=== PATIENT | male | born 1930 | race Caucasian/White ===

== ENCOUNTER 2016-06-06 09:11 | Inpatient (IN) | payer MEDICARE ==
[2016-06-06] VITALS (7 sets, daily range): BP systolic 114–154; BP diastolic 64–84; PULSE 71–106; RESP 20–22; TEMP 97.1–97.8; O2SAT 95–97
[~2016-06-06] VITALS: Ht 177.8 cm; Wt 114.7 kg
[~2016-06-06 09:11] MED LIST: ANDRGEL TOP; ASPI81TA11 PO; ATAC8TAB PO; COUM5TAB PO; FOLI1TAB PO; FURO1TAB93 PO; NITR0.4S SL; POTA10CA26 PO; PRED10 PO; ROSU40 PO; VITA100018 PO
[2016-06-06] MEDS ORDERED: SODIUM CHLORIDE 0.9% FLUSH 10 ML FLUSH IVF PRN (09:45)
[2016-06-06] MEDS ORDERED: NITROGLYCERIN 2% OINT 1 GM PACKET TOPICAL ONE (09:45)
--- NOTE | 2016-06-06 09:46 | PD ---
HPI Chief Complaint: Respiratory Symptoms Time Seen by Provider: 09:34 Travel History International Travel<30 days: No Contact w/Intl Traveler<30days: No Traveled to known affect area: No History of Present Illness HPI 85-year-old male with history of HTN, HLD, A. fib, CAD with previous PCI 2, CHF here with complaint of shortness of breath and chest pressure. Over the course of the last several weeks patient has been having increasing dyspnea. This is made worse with exertion. Associated orthopnea and PND. Patient has also had some chest pressure with exertion. He has not had any significant symptoms at rest. He has been taking nitroglycerin which does help some. He's been managed by his PCP [facility] outpatient and was diuresed with Lasix earlier this weeks with approximately [address] L out[address] Patient states [address] Cohn who wanted to perform a cardiac catheterization this past winter but patient declined. Last echo 2014 with EF of 52%. PFSH Past Medical History Arthritis: Yes Asthma: No Atrial Fibrillation: Yes Blood Disorders: No Heart Rhythm Problems: Yes Cancer: Yes (MUTIPLE SKIN CANCER) Cardiac Catheterization: Yes Cardiovascular Problems: Yes ([place] , 2 STENTS ,HX OF AFIB) High Cholesterol: Yes Chemotherapy: No Congestive Heart Failure: Yes COPD: No Diabetes: No Endocrine: No Gastrointestinal Disorders: Yes Genitourinary: Yes Headaches: Yes Hiatal Hernia: Yes Hypertension: Yes Immune Disorder: No Kidney Stones: Yes Musculoskeletal: Yes (hX BULGING DISCS CERVIAL, THORACIC,LUMBAR) Neurologic: Yes Psychiatric: No Reproductive: No Respiratory: Yes (PULMONARY EMBOLUS KRISTIN,SLEEP APNEA) Radiation Therapy: No Sleep Apnea: Yes Thyroid Disease: Yes Ulcer: Yes Tetanus Vaccination: < 5 Years Influenza Vaccination: No Past Surgical History Abdominal Surgery: No Body Medical Devices: BLOOD CLOTS BOTH LUNGS AND LEFT LEG. CELLULITIS LT LEG Cardiac Surgery: Yes (stents x 2) Coronary Stent: Yes Ear Surgery: No Endocrine Surgery: No Eye Surgery: Yes (CATARACT BILATERALLY) Genitourinary Surgery: No Gynecologic Surgery: No Joint Replacement: Yes (R KNEE, R HIP) Neurologic Surgery: No Oral Surgery: Yes (T & A) Thoracic Surgery: No Tonsillectomy: Yes Other Surgery: Yes Social History Alcohol Use: Yes (WINE 3-4 X WEEK) Tobacco Use: No Substance Use: No Allergies-Medications (Allergen,Severity, Reaction): Coded Allergies: MRI PRECAUTION (Verified Allergy, Severe, AT THIS TIME PT IS TOO LARGE BUT NOT OVER WEIGHT LIMIT JI, 06/06/16) Morphine (Verified Adverse Reaction, Severe, Confusion, 06/06/16) Uncoded Allergies: HYDROCODONE/ACETAMINOPHEN (Allergy, Mild, Itching, 11/03/15) LEVOFLOXIN (Adverse Reaction, Mild, NAUSEA/DIZZINESS, 11/03/15) Reported Meds & Prescriptions Reported Meds & Active Scripts Active Review of Systems Except as stated in HPI: all other systems reviewed are Neg Physical Exam Narrative GENERAL: Well-appearing elderly male in no acute distress SKIN: Focused skin assessment warm/dry. HEAD: Normocephalic. EYES: No scleral icterus. No injection or drainage. ENT: Mucous membranes pink and moist. NECK: Supple CARDIOVASCULAR: Heart rate in the 100s, irregularly irregular rhythm with frequent PVCs on monitor. No murmur appreciated. RESPIRATORY: No accessory muscle use. Decreased in bilateral bases GASTROINTESTINAL: Abdomen soft, non-tender, nondistended. MUSCULOSKELETAL: 1-2+ edema in the bilateral lower extremities left slightly greater than right NEUROLOGICAL: Awake and alert. Motor grossly within normal limits. Normal speech. PSYCHIATRIC: Appropriate mood and affect; insight and judgment normal. Data Data Last Documented VS Vital Signs Date Time Temp Pulse Resp B/P Pulse Ox O2 Delivery O2 Flow Rate FiO2 06/06/16 09:25 Room Air 06/06/16 09:23 97.7 99 21 148/71 97 Orders Electrocardiogram (06/06/16 ) Complete Blood Count With Diff (06/06/16 09:40) Basic Metabolic Panel (Bmp) (06/06/16 09:40) B-Type Natriuretic Peptide (06/06/16 09:40) Act Partial Throm Time (Ptt) (06/06/16 09:40) Prothrombin Time / Inr (Pt) (06/06/16 09:40) Troponin I (06/06/16 09:40) Iv Access Insert/Monitor (06/06/16 09:40) Ecg Monitoring (06/06/16 09:40) Oximetry (06/06/16 09:40) Chest, Single Ap (06/06/16 09:40) Sodium Chloride 0.9% Flush (Ns Flush) (06/06/16 09:45) Nitroglycerin 2% Oint (Nitroglycerin 2% (06/06/16 09:45) Admit Order (Ed Use Only) (06/06/16 09:40) [facility] Medical Decision Making Medical Screen Exam Complete: Yes Emergency Medical Condition: Yes Medical Record Reviewed: Yes Differential Diagnosis 85-year-old male with history of HTN, HLD, A. fib, CAD with previous PCI 2, CHF here with several weeks of exertional dyspnea and angina, symptom-free at this time. Differential includes stable angina, ACS, CHF exacerbation, A. fib, electrolyte abnormality, symptomatic anemia. Narrative Course Patient placed on monitor, IV established and blood obtained. Twelve-lead EKG shows atrial fibrillation with RVR, rate 105. Frequent PVCs. Patient does have some T-wave inversions in the lateral leads which is new compared to his previous EKG. Symptom-free at this time. 1 inch of nitroglycerin paste applied. Portal chest x-ray obtained that by my read shows no acute abnormalities. CBC, BMP, BNP, troponin, coags notable for minimally elevated BNP. Patient was placed on heparin bolus and drip and will be admitted for further cardiac consultation and likely catheterization. Dr. Shaw, patient's PCP spoke with dextrine mixer while in the ER. Critical Care Narrative Aggregate critical care time was 35 minutes. Time to perform other separately billable procedures was not included in the critical care time. My time did not include minutes spent treating any other patients simultaneously or on activities that did not directly contribute to the patient's treatment. The services I provided to this patient were to treat and/or prevent clinically significant deterioration that could result in: Cardio pulmonary decompensation , , disability I provided critical care services requiring my management, as noted below: Chart data review, documentation time, medication orders and management, vital sign assessments/reviewing monitor data, ordering and reviewing lab tests, ordering and interpreting/reviewing x-rays and diagnostic studies, care of the patient and discussion of the patient with the admitting physicians. Diagnosis Primary Impression: Unstable angina Admitting Information Admitting Physician Requests: Jelena Schuster MD Jun 06, 2016 09:46
[2016-06-06] MEDS ORDERED: ONDANSETRON HCL 4 MG/2 ML VIAL IV PRN (10:00)
[2016-06-06] MEDS ORDERED: NITROGLYCERIN 0.4 MG SL 25 TABS/BTL SL PRN (10:00)
[2016-06-06] MEDS ORDERED: HEPARIN SODIUM - IV 10,000 UNITS/10 ML VIAL IV ONE (10:00)
[2016-06-06] MEDS ORDERED: ACETAMINOPHEN 325 MG TAB PO PRN (10:00)
[2016-06-06] MEDS ORDERED: HEPARIN-D5W INJ 250 ML IV SCH ×2 (10:00)
[2016-06-06] MEDS ORDERED: SODIUM CHLORIDE 0.9% FLUSH 10 ML FLUSH IV FLUSH PRN (10:00)
[2016-06-06] MEDS ORDERED: DOCUSATE SODIUM 100 MG CAP PO PRN (10:00)
[2016-06-06 10:10] LABS: AUTOMATED NEUTROPHIL # 6.4 TH/MM3 (1.8-7.7); BASOPHIL % 0.2 % (0.0-2.0); EOSINOPHIL # 0.1 TH/MM3 (0-0.4); EOSINOPHIL % 0.8 % (0.0-4.0); HEMATOCRIT 50.3 % (39.0-51.0); HEMO FLAGS DIFF FINAL; LYMPH % 22.7 % (9.0-44.0); LYMPHOCYTE # 2.2 TH/MM3 (1.0-4.8); MEAN CELL VOLUME 89.7 FL (80.0-100.0); MEAN CORPUSCULAR HEMOGLOBIN 29.7 PG (27.0-34.0); MEAN CORPUSCULAR HGB CONC 33.1 % (32.0-36.0); MONO % 9.5 % (0.0-8.0); NEUT % 66.8 % (16.0-70.0); PLATELET COUNT 223 TH/MM3 (150-450); RED CELL DISTRIBUTION WIDTH 17.5 % (11.6-17.2); WHITE BLOOD COUNT 9.6 TH/MM3 (4.0-11.0)
--- NOTE | 2016-06-06 10:12 | RADRPT ---
EXAM DATE/TIME: 06/06/2016 09:40 [facility] COMPARISON: CHEST SINGLE AP, November 03, 2015, 10:41. INDICATIONS : Short of breath MEDICAL HISTORY : atrial fibrillation. SURGICAL HISTORY : Coronary artery stent. ENCOUNTER: Initial ACUITY: 1 day PAIN SCORE: 0/10 LOCATION: Bilateral chest FINDINGS: The lungs are clear without infiltrate, nodule, or mass. There is no appreciable pleural effusion fo r technique. Heart and mediastinum are unremarkable. Chronic degenerative changes are present in layne ateral shoulders and not changed. CONCLUSION: No acute cardiopulmonary disease. Antwon England MD on June 06, 2016 at 10:10 Board Certified Radiologist. This report was verified electronically.
[2016-06-06 10:25] LABS: BICARBONATE 30.7 MEQ/L (21.0-32.0); POTASSIUM 3.5 MEQ/L (3.5-5.1)
[2016-06-06 10:30] LABS: APTT (PATIENT) 30.3 SEC (24.3-30.1); INTERNATIONAL NORMALIZED RATIO 2.6 RATIO; PROTHROMBIN TIME - PATIENT 29.9 SEC (9.8-11.6)
[2016-06-06] MEDS ORDERED: ROSU20 PO (10:40)
[2016-06-06] MEDS ORDERED: FENT50DI T-DERMAL (10:40)
[2016-06-06] MEDS ORDERED: ASPI81TA2 PO (10:40)
[2016-06-06] MEDS ORDERED: DICL1GEL TOPICAL (10:40)
[2016-06-06] MEDS ORDERED: ANDR1.62 TOPICAL (10:40)
[2016-06-06] MEDS ORDERED: POTA10CA PO (10:40)
[2016-06-06] MEDS ORDERED: MEDR4TAB PO (10:40)
[2016-06-06] MEDS ORDERED: FOLI1TAB4 PO (10:40)
[2016-06-06] MEDS ORDERED: NITR0.4S SL (10:41)
[2016-06-06] MEDS: POTASSIUM CHLORIDE 10 MEQ CAP PO SCH ×2 (11:00→20:27)
--- NOTE | 2016-06-06 11:05 | MH ---
cc: KEVIN ESPARZA M.D. DATE OF ADMISSION: 06/06/2016 ADMISSION DIAGNOSIS Shortness of breath, chest pressure. HISTORY OF PRESENT ILLNESS This 85-year-old white male well-known to undersigned physician has a history of atherosclerotic heart disease. He underwent coronary stent placement by Dr. Cohn in 2006. The patient also has chronic atrial fibrillation which has been controlled with medication and he is chronically on Coumadin for prophylaxis against embolism. The patient over the last 3 months has had episodes of chest discomfort and increasing dyspnea on exertion. All of the symptoms have been with activity. He was seen by Dr. Cohn [facility] time 2016 and it was suggested he undergo cardiac catheterization but the patient declined. The patient's medications were adjusted, however, he was having difficulty tolerating the higher doses of medications due to symptomatic hypotension. The patient's medications were adjusted and over the last 3-4 weeks he has been having increasing episodes of shortness of breath and some chest discomfort. He did not report to the undersigned physician that he had been having episodes of waking up at night feeling short of breath and having to sit at the side of the bed. He also was having chest pressure in the middle of the night. He has been using sublingual nitroglycerin which provides him with relief. The patient was seen in the undersigned physician's office 3 days prior to admission, at which point he was felt to have fluid overload and his Lasix was increased to 40 mg twice daily. The next day his reported that he diuresed 2000 ccs of urine and was feeling a little better. However, on the day prior to admission the called the undersigned physician and stated that he was still having shortness of breath at night which made it difficult for him to sleep despite using his BiPAP with supplemental oxygen. He was having episodes of chest pressure even occurring at rest, at which point the undersigned physician recommended the patient be taken to this facility for further evaluation and treatment. They opted not to go until this morning. His called EMS this morning for the persistent symptoms and he was brought to this facility. At the current time the patient denies any chest pressure. He was having shortness of breath but he has supplemental oxygen in place. His oxygen saturations have been greater than 92%. He denies any headaches, any visual changes, any palpitations, any nausea, vomiting, diaphoresis. His bowels have been moving well. He has been having vigorous urine output as a result of the Lasix. He denies any fever, chills, night sweats. He has been compliant with his medications. He has had no melena, hematochezia, hemoptysis or hematuria. PAST MEDICAL HISTORY His past medical history is significant for: 1. Rheumatoid arthritis. 2. Kidney stones. 3. Peptic ulcer disease. 4. Hyperlipidemia. 5. Depression. 6. 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 He currently is receiving a Fentanyl patch which has helped greatly with the pain. 7. He has diverticulosis. 8. History of two previous left lower extremity DVTs. He is on chronic Coumadin for anticoagulation. 9. He has history of venous insufficiency in the bilateral lower extremities. 10. Sleep apnea for which she uses a BiPAP and supplemental oxygen. 11. He has hypertension. 12. Hypogonadism. 13. Atherosclerotic heart disease status post coronary stent placement in 2006. 14. H had a compression fracture of L1 in 2011 which resulted in a kyphoplasty. 15. He has atrial fibrillation. 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 17. He has trigeminal neuralgia on the left side of the face which it was felt to be the result of the TMJ and this is currently well-controlled. 18. He has erectile dysfunction. PAST SURGICAL HISTORY 1. He is status post coronary stent placement in 2006. 2. He had a right total knee replacement in 2001. 3. Right total hip replacement in 2004. 4. Carpal tunnel release on the left in 1981. 5. He is status post bilateral cataract removal with lens implants. 6. Resection of a lumbar cyst in 2005. MEDICATIONS Current medications are: 1. Fentanyl patch 50 mcg one patch applied to skin every 3 days. 2. Coumadin 5 mg one tablet daily except 2.5 mg on Mondays and . 3. Potassium chloride ER 10 mEq daily. 4. Furosemide 40 mg twice daily. 5. Atacand 4 mg daily. 6. Prilosec 40 mg daily. 7. Baclofen 10 mg twice a day as needed for the trigeminal neuralgia. 8. Lidocaine patch 5% applied to the back as needed for 12 hours and then removed. 9. Levothyroxine 50 mcg daily. 10. Nitroglycerin 0.4 mg sublingual tablets as needed. 11. Voltaren gel 1% apply 4 grams to the affected joints three times a day as needed. 12. Androgel 1% two pumps to the skin once a day. 13. Enteric-coated aspirin 81 mg daily. 14. Folic acid 1 mg daily. 15. Crestor 20 mg daily. 16. Methylprednisolone 4 mg one tablet daily. ALLERGIES He has allergies to: HYDROCODONE WHICH CAUSED ITCHING. LEVAQUIN WHICH CAUSED ACHILLES TENDON PAIN. MORPHINE WHICH CAUSED CONFUSION. FAMILY HISTORY Noncontributory. SOCIAL HISTORY He is , retired. He does not smoke nor did he ever. He consumed alcohol on a daily basis until March 20, 2016 and he has no alcohol since that time. REVIEW OF SYSTEMS Review of systems is negative except as outlined above. PHYSICAL EXAMINATION VITAL SIGNS: Upon arrival to the emergency department his heart rate was 99, respirations 21, blood pressure 148/71 with a temperature 97.7 degrees Fahrenheit, oxygen saturation on room air was 97%. GENERAL: In general this is an obese elderly white male, lying in bed in mild respiratory distress. HEENT: The pupils are equal, round, reactive to light. Extraocular movements are intact. Sclerae anicteric. Conjunctivae were pink. Bilateral lens implants in place. Nares patent without discharge. Mouth and throat reveal moist mucous membranes. No erythema, exudates. Dentition is good. NECK: Neck is supple without lymphadenopathy, JVD, bruits or thyromegaly. CARDIOVASCULAR: Irregular rate and rhythm with a 3/6 systolic murmur heard best at the left lower sternal border and a softer 2/6 systolic murmur heard best at the right upper sternal border. LUNGS: Reveal diminished breath sounds in the bases but no definitive rales. No wheezes, no rhonchi. ABDOMEN: The abdomen is obese, soft, nontender. Bowel sounds present. No mass palpable. No hepatosplenomegaly. /RECTAL: Deferred. LOWER EXTREMITIES: Reveal 1+ edema. The left leg is larger than the right. No calf tenderness. No Homans' sign. SKIN: Warm and dry. NEUROLOGIC: Nonfocal. LABORATORY DATA Pending at this point. EKG Revealed atrial fibrillation with a rapid ventricular response, 105 beats per minute. There are frequent PVCs. There are [address] depressions in the inferior and lateral leads which are new compared to the patient's previous EKG done within the last 6 months. IMPRESSION AND PLAN 1. This 85-year-old white male presents with shortness of breath and chest pressure. He will be admitted to medical-surgical bed with telemetry for congestive heart failure and coronary ischemia. The patient will be placed on heparin drip. He was given nitroglycerin paste 1 inch. He has already taken aspirin today. Will hold his Coumadin, if INR is elevated, will need to reverse anticoagulation in anticipation of cardiac catheterization with possible percutaneous intervention. The patient will be continued on ARB. Will place him on Carvedilol twice daily. Will perform serial EKG and cardiac enzymes. I have consulted Dr. Cohn the patient's mold blower. I have been told that Dr. Rodriguez is covering. I have placed a call to Dr. Rodriguez and I am awaiting her return call. 2. History of atrial fibrillation. The patient remains in atrial fibrillation and currently is in a rapid ventricular response. The carvedilol should help with the rapid ventricular response, if not, will adjust medication further, will reverse the Coumadin anticoagulation and continue with heparin drip. 3. Hypertension. Blood pressure is mildly elevated but should come under better control with the carvedilol as well as the patient is going to receive Lasix IV for his fluid overload. We will monitor intake and output closely, monitor renal function and electrolytes. 4. History of cervical, thoracic and lumbar disk disease. The patient is continuing with the Fentanyl patch. It was replaced first thing this morning. He will have it changed every 3 days. 5. Sleep apnea. The patient will need to use his home BiPAP machine. Will ask his to bring it in when she comes to the facility. 6. Hypogonadism. Hold testosterone supplementation at this point. 7. History of gastroesophageal reflux disease and peptic ulcer disease. The patient will be placed on pantoprazole instead of his usual omeprazole due to formulary restrictions. I have explained the plan of care to the patient. He expressed understanding and agreement. MD LUCAS Vaz/CATALINO /10:14 AM 10:31 AM
[2016-06-06] MEDS: CARVEDILOL 6.25 MG TAB PO SCH ×2 (11:10→20:27)
[2016-06-06] MEDS: NITROGLYCERIN 2% OINT 1 GM PACKET TOP SCH ×3 (11:10→23:52)
--- NOTE | 2016-06-06 15:12 | EKG ---
Date Performed: 06/06/2016 Time Performed: 09:30:53 PTAGE: 85 years EKG: ATRIAL FIBRILLATION WITH RAPID VENTRICULAR RESPONSE WITH ABERRANT CONDUCTION OR VENTRICULAR PREMATURE COMPLEXES NONSPECIFIC ST & T-WAVE ABNORMALITY When compared to previous tracing, the ventr icular ectopic beats Verses abberrarnt conduction is new, otherwise no significant Change. ABNORMAL R HYTHM ECG PREVIOUS TRACING : 11/03/2015 10.54 DOCTOR: Cristhian Yu Interpretating Date/Time 06/06/2016 15:11:23
[2016-06-06] MEDS ORDERED: HEPARIN SODIUM - IV 10,000 UNITS/10 ML VIAL IV PRN ×4 (16:00)
[2016-06-06] MEDS ORDERED: POTASSIUM CHLORIDE 10 MEQ CONTROLLED RELEASE TAB PO ONE (16:00)
[2016-06-06 16:57] LABS: APTT (PATIENT) 48.7 SEC (24.3-30.1)
[2016-06-06] MEDS ORDERED: FUROSEMIDE 40 MG TAB PO SCH (18:00)
--- NOTE | 2016-06-06 19:04 | MB ---
cc: CINDA LONG M.D., JASON R. M.D. LOPEZ, MARIA I. M.D. DATE OF CONSULTATION 06/06/16 INDICATION He is an 85-year-old white male with history of coronary artery disease and status post coronary stenting in 2006 who has been having angina on exertion for the last 3-months which has progressed to angina at rest. The patient had also been experiencing some paroxysmal nocturnal dyspnea which has improved with administration of diuretics. The patient had been offered a cardiac catheterization before but had refused and now decided to come in to have the procedure done. Currently he is in no acute distress. PAST MEDICAL HISTORY His past medical history, coronary artery disease status post stent in 2006. Rheumatoid arthritis, kidney stones, peptic ulcer disease, hyperlipidemia, chronic back pain with degenerative disk disease. Diverticulosis, lower extremity DVTs, chronic atrial fibrillation with sleep apnea, hypertension, hypogonadism, trigeminal neuralgia. PAST SURGICAL HISTORY Right total knee replacement, right total hip replacement, carpal tunnel release on the left side, bilateral cataracts. ALLERGIES HYDROCODONE, LEVAQUIN AND MORPHINE. FAMILY HISTORY Noncontributory. SOCIAL HISTORY The patient is . Never smoked, quit drinking in February of this year. MEDICATIONS Current medications are: 1. Fentanyl patch. 2. Losartan 25 milligrams daily. 3. Aspirin 81 milligrams daily. 4. Protonix 40 milligrams daily. 5. Methylprednisolone 4 milligrams daily. 6. Lasix 40 milligrams IV daily. 7. Levothyroxine 50 micrograms daily. 8. Pravastatin 20 milligrams daily. 9. Carvedilol 6.5 milligrams twice a day. 10. Potassium 10 milliequivalents twice a day. 11. Sublingual nitroglycerin as needed. PHYSICAL EXAMINATION GENERAL: The patient is in no acute distress. VITAL SIGNS: Blood pressure 115/69 mmHg, heart rate 85 beats per minute. He is a febrile. HEAD/NECK: Head and neck without JVD or carotid bruits. LUNGS: Clear to auscultation. HEART: With a regular irregular rhythm. ABDOMEN: Positive bowel sounds. No megalies palpated. He is obese. EXTREMITIES: Lower extremities with 2+ edema and hyperchromic ischemic changes. NEURO: He has no focal motor deficits. REVIEW OF SYSTEMS Review of systems as stated in the history of present illness. DATA Electrocardiogram with atrial fibrillation with PVCs and a heart rate of 105. CBC within normal limits. INR 2.6. BMP within normal limits except for a low normal potassium of 3.5. Troponins negative x2. Chest x-ray with no cardiopulmonary disease. ASSESSMENT An 85-year-old white male admitted with unstable angina, acute coronary syndrome ruled out. RECOMMENDATIONS Hold Coumadin. Continue other medications the same. Replete potassium. Plan for cardiac catheterization once the INR is below 1.5. MD MARBELLA Stevenson/BARBY /3:47 PM /6:56 PM MTDD
[2016-06-06] MEDS: SODIUM CHLORIDE 0.9% FLUSH 10 ML FLUSH IV FLUSH SCH (20:27)
[2016-06-06] MEDS: PRAVASTATIN SOD 20 MG TAB PO SCH (20:27)
[2016-06-07] VITALS (9 sets, daily range): BP systolic 117–144; BP diastolic 57–78; PULSE 73–92; RESP 20; TEMP 97.1–98.5; O2SAT 93–97
[2016-06-07] MEDS: NITROGLYCERIN 2% OINT 1 GM PACKET TOP SCH ×4 (05:39→21:03)
[2016-06-07] MEDS ORDERED: LEVOTHYROXINE SODIUM 50 MCG TAB PO ONE (07:00)
[2016-06-07 07:33] LABS: INTERNATIONAL NORMALIZED RATIO 3.4 RATIO; PROTHROMBIN TIME - PATIENT 39.7 SEC (9.8-11.6)
[2016-06-07 07:47] LABS: BICARBONATE 25.2 MEQ/L (21.0-32.0); HDL CHOLESTEROL 46.5 MG/DL (40.0-60.0); POTASSIUM 4.4 MEQ/L (3.5-5.1)
[2016-06-07] MEDS ORDERED: ACETAMINOPHEN 500 MG CPLT PO PRN (08:45)
[2016-06-07] MEDS ORDERED: NITROGLYCERIN 0.4 MG SL 25 TABS/BTL SL PRN (08:45)
--- NOTE | 2016-06-07 08:54 | HHI.PR ---
Subjective Remarks Had some chest pressure overnight which was relieved when put O2 back on. UOP good. Less SOB. Complains of musculoskeletal pain. PO intake good. Current Medications Medications (Trade) Dose Ordered Sig/David Route Start Time Stop Time Status Last Admin (NS Flush) 2 ml BID IV FLUSH 06/06/16 21:00 06/06/16 20:27 (NS Flush) 2 ml UNSCH PRN IV FLUSH 06/06/16 10:00 (Nitroglycerin 2% Oint) 1 inch Q6HR TOP 06/06/16 12:00 06/07/16 05:39 (Nitrostat Sl) 0.4 mg Q5M PRN SL 06/06/16 10:00 (Colace) 100 mg BID PRN PO 06/06/16 10:00 (Zofran Inj) 4 mg Q6H PRN IV 06/06/16 10:00 (Cozaar) 25 mg DAILY PO 06/07/16 09:00 (Pravachol) 20 mg HS PO 06/06/16 21:00 06/06/16 20:27 (Ecotrin Ec) 81 mg DAILY PO 06/07/16 09:00 (Protonix) 40 mg DAILY PO 06/07/16 09:00 (Medrol) 4 mg DAILY PO 06/07/16 09:00 (Duragesic 50 Mcg Patch.72 Hr) 1 patch Q3D T-DERMAL 06/09/16 09:00 Miscellaneous Information 1 Q3D T-DERMAL 06/12/16 09:00 (Coreg) 6.25 mg Q12HR PO 06/06/16 11:00 06/06/16 20:27 (KCl) 10 meq BID PO 06/06/16 11:00 06/06/16 20:27 Furosemide 40 mg 40 mg DAILY IV PUSH 06/07/16 09:00 (Vitamin K Inj/ NS Inj) 51 ml @ 102 mls/hr ONCE ONCE IV 06/07/16 08:00 06/07/16 08:29 UNV (Nitrostat Sl) 0.4 mg Q5M PRN SL 06/07/16 08:45 UNV (Tylenol) 1,000 mg BID PRN PO 06/07/16 08:45 UNV Objective Vital Signs Date Time Temp Pulse Resp B/P Pulse Ox O2 Delivery O2 Flow Rate FiO2 06/07/16 05:51 96 Nasal Cannula 2.00 06/07/16 04:00 98.1 73 20 128/78 93 06/07/16 00:00 98.5 92 20 117/74 93 06/06/16 20:00 106 06/06/16 20:00 97.1 84 22 136/64 95 06/06/16 16:00 97.8 83 20 154/82 96 06/06/16 14:29 85 19 115/69 97 06/06/16 12:00 81 20 114/84 96 Room Air 06/06/16 10:54 71 22 142/72 96 Room Air 06/06/16 09:43 97 Room Air 06/06/16 09:25 Room Air 06/06/16 09:23 97.7 99 21 148/71 97 I/O 06/06/16 06/06/16 06/06/16 06/07/16 06/07/16 06/07/16 07:00 15:00 23:00 07:00 15:00 23:00 Intake Total 480 ml 480 ml Output Total 300 ml Balance -300 ml 480 ml 480 ml Intake Oral 480 ml 480 ml Output Urine Total 300 ml # Voids 1 3 3 # Bowel Movements 0 0 Gen: OOB in chair in NAD CV: IRRR with systolic murmur Lungs: Decreased BS in bases otherwise CTA Ext: Tr-1+ distal edema Result Diagram: 06/06/16 0945 06/07/16 0620 Assessment and Plan Problem List: (1) Unstable angina Status: Acute Plan: PR ruled out with serial Troponin. Still intermittent chest discomfort described as a pressure. Occurred with O2 off. Better with O2. Has not taken a nitroglycerin since admission. Further work-up per Cardiology. Continue Nitropaste, Carvedilol, Aspirin (2) Chronic atrial fibrillation Status: Chronic Plan: Will give Vit K to reverse anticoagulation in anticipation of cardiac cath HR 100-110 this am. Will increased Carvedilol. (3) Hypertension Status: Chronic Plan: BP under adequate control (4) Hypokalemia Status: Resolved Plan: Follow K+ level. Cont supplement (5) Rheumatoid arthritis Status: Chronic Plan: Continue Medrol po (6) GERD (gastroesophageal reflux disease) Status: Chronic Plan: Cont PPI (7) Hypothyroidism Status: Chronic Plan: Cont Levothyroxine (8) Obstructive sleep apnea Status: Chronic Plan: will bring machine from home Problem Qualifiers (1) Hypertension: Qualified Code: I10 - Essential hypertension (2) Rheumatoid arthritis: Qualified Code: M06.09 - Rheumatoid arthritis of multiple sites with negative rheumatoid factor (3) GERD (gastroesophageal reflux disease): Qualified Code: K21.9 - Gastroesophageal reflux disease without esophagitis (4) Hypothyroidism: Qualified Code: E03.9 - Hypothyroidism, unspecified type Garrett Shaw MD Jun 07, 2016 08:54
[2016-06-07] MEDS ORDERED: POTASSIUM CHLORIDE 10 MEQ CAP PO SCH (09:00)
[2016-06-07] MEDS ORDERED: PHYTONADIONE INJ 10 MG in SODIUM CHLORIDE 0.9% INJ 50 ML IV ONE (10:00)
[2016-06-07] MEDS: POTASSIUM CHLORIDE 10 MEQ CAP PO SCH ×2 (10:09→21:01)
[2016-06-07] MEDS: PANTOPRAZOLE SOD 40 MG DELAYED RELEASE TAB PO SCH (10:09)
[2016-06-07] MEDS: LOSARTAN 25 MG TAB PO SCH (10:10)
[2016-06-07] MEDS: ASPIRIN EC 81 MG TABEC PO SCH (10:10)
[2016-06-07] MEDS: FUROSEMIDE 40 MG/4 ML VIAL IV PUSH SCH (10:10)
[2016-06-07] MEDS: CARVEDILOL 6.25 MG TAB PO SCH ×2 (10:10→21:00)
[2016-06-07] MEDS: methylPREDNISolone 4 MG TAB PO SCH (10:10)
[2016-06-07] MEDS: SODIUM CHLORIDE 0.9% FLUSH 10 ML FLUSH IV FLUSH SCH ×2 (10:11→21:03)
--- NOTE | 2016-06-07 10:49 | EKG ---
Date Performed: 06/07/2016 Time Performed: 10:30:22 PTAGE: 85 years EKG: ATRIAL FIBRILLATION WITH ABERRANT CONDUCTION OR VENTRICULAR PREMATURE COMPLEXES NONSPECIFIC ST & T-WAVE ABNORMALITY ABNORMAL RHYTHM ECG PREVIOUS TRACING : 06/06/2016 09.30 Compared to prior tracing no significant change DOCTOR: Billy Streeter Interpretating Date/Time 06/07/2016 10:49:17
--- NOTE | 2016-06-07 13:51 | PD.CARD.PN ---
Subjective Subjective Remarks The continues to have difficultly breathing in supine position. Denies CP. Has on nitro paste currently. (Cyndie Leblanc) Objective Medications Current Medications Medications (Trade) Dose Ordered Sig/David Route Start Time Stop Time Status Last Admin (NS Flush) 2 ml BID IV FLUSH 06/06/16 21:00 06/07/16 10:11 (NS Flush) 2 ml UNSCH PRN IV FLUSH 06/06/16 10:00 (Nitroglycerin 2% Oint) 1 inch Q6HR TOP 06/06/16 12:00 06/07/16 05:39 (Nitrostat Sl) 0.4 mg Q5M PRN SL 06/06/16 10:00 (Colace) 100 mg BID PRN PO 06/06/16 10:00 (Zofran Inj) 4 mg Q6H PRN IV 06/06/16 10:00 (Cozaar) 25 mg DAILY PO 06/07/16 09:00 06/07/16 10:10 (Pravachol) 20 mg HS PO 06/06/16 21:00 06/06/16 20:27 (Ecotrin Ec) 81 mg DAILY PO 06/07/16 09:00 06/07/16 10:10 (Protonix) 40 mg DAILY PO 06/07/16 09:00 06/07/16 10:09 (Medrol) 4 mg DAILY PO 06/07/16 09:00 06/07/16 10:10 (Duragesic 50 Mcg Patch.72 Hr) 1 patch Q3D T-DERMAL 06/09/16 09:00 Miscellaneous Information 1 Q3D T-DERMAL 06/12/16 09:00 (KCl) 10 meq BID PO 06/06/16 11:00 06/07/16 10:09 (Lasix Inj) 40 mg DAILY IV PUSH 06/07/16 09:00 06/07/16 10:10 (Tylenol) 1,000 mg BID PRN PO 06/07/16 08:45 (Coreg) 12.5 mg Q12HR PO 06/07/16 09:00 06/07/16 10:10 Vital Signs / I&O Vital Signs Date Time Temp Pulse Resp B/P Pulse Ox O2 Delivery O2 Flow Rate FiO2 06/07/16 12:00 97.5 83 20 123/57 95 06/07/16 08:00 97.7 76 20 138/75 96 06/07/16 05:51 96 Nasal Cannula 2.00 06/07/16 04:00 98.1 73 20 128/78 93 06/07/16 00:00 98.5 92 20 117/74 93 06/06/16 20:00 106 06/06/16 20:00 97.1 84 22 136/64 95 06/06/16 16:00 97.8 83 20 154/82 96 06/06/16 14:29 85 19 115/69 97 I/O 06/06/16 06/06/16 06/06/16 06/07/16 06/07/16 06/07/16 07:00 15:00 23:00 07:00 15:00 23:00 Intake Total 480 ml 480 ml Output Total 300 ml Balance -300 ml 480 ml 480 ml Intake Oral 480 ml 480 ml Output Urine Total 300 ml # Voids 1 3 3 # Bowel Movements 0 0 Physical Exam GENERAL: Obese, elderly male, at bedside SKIN: Warm and dry. HEAD: Normocephalic. EYES: No scleral icterus. No injection or drainage. NECK: Supple, trachea midline. 2 cm JVD CARDIOVASCULAR: Irregularly irregular RESPIRATORY: Breath sounds equal bilaterally. No accessory muscle use. Nasal cannula GASTROINTESTINAL: Abdomen soft, non-tender, nondistended. MUSCULOSKELETAL: No cyanosis, 1+ BLE edema, venous stasis BACK: Nontender without obvious deformity. Laboratory Laboratory Tests Test 06/06/16 06/06/16 06/07/16 16:20 22:56 06:20 Activated Partial 48.7 SEC Thromboplast Time Total Creatine Kinase 49 U/L 48 U/L Troponin I 0.02 NG/ML 0.02 NG/ML Prothrombin Time 39.7 SEC Prothromb Time International 3.4 RATIO Ratio Sodium Level 136 MEQ/L Potassium Level 4.4 MEQ/L Chloride Level 102 MEQ/L Carbon Dioxide Level 25.2 MEQ/L Anion Gap 9 MEQ/L Blood Urea Nitrogen 16 MG/DL Creatinine 0.93 MG/DL Estimat Glomerular Filtration 78 ML/MIN Rate Random Glucose 70 MG/DL Calcium Level 8.5 MG/DL Triglycerides Level 93 MG/DL Cholesterol Level 91 MG/DL LDL Cholesterol 26 MG/DL HDL Cholesterol 46.5 MG/DL Cholesterol/HDL Ratio 1.95 RATIO Imaging Last 72 hours Impressions Chest X-Ray 06/06/16 0940 Signed Impressions: Service Date/Time: Monday, June 06, 2016 09:40 - CONCLUSION: No acute cardiopulmonary disease. Antwon England MD (Cyndie Leblanc) Assessment and Plan Assessment and Plan SOB and CP, troponin X 3 negative, EKG no signs of acute ischemia CHF exacerbation- diuretics recently decreased by PCP. Symptoms improved with increased diuresis Chronic atrial fibrillation. On coumadin, INR supratherapuetic today. 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 negative cardiac stress test 2012 Sleep apnea Chronic back pain PLAN Continue IV diuresis Increase rate control therapy Remove nitro paste, evaluate for recurrent CP symptoms Check cardiac echo for decreased LV function Will follow up tomorrow. We will not plan for cardiac cath at this time. Patient seen and evaluated by Dr. Cohn. (Cyndie Leblanc) Assessment and Plan The exam, history, and the medical decision-making described in the above note were completed with the assistance of the mid-level provider. I reviewed and agree with the findings presented. I attest that I had a [id number] encounter with the patient on the same day, and personally performed and documented my assessment and findings in the medical record. Discussed with Dr Shaw, will treat medically; high risk for cath unable to lay flat, very overweight (Beka Cohn MD) Cyndie Leblanc Jun 07, 2016 13:51 Beka Cohn MD Jun 07, 2016 18:10
[2016-06-07] MEDS: PRAVASTATIN SOD 20 MG TAB PO SCH (21:00)
[2016-06-08] VITALS (10 sets, daily range): BP systolic 102–150; BP diastolic 52–76; PULSE 70–98; RESP 18–19; TEMP 97–98.6; O2SAT 93–98
[2016-06-08] MEDS: NITROGLYCERIN 2% OINT 1 GM PACKET TOP SCH ×4 (06:00→22:07)
[2016-06-08 08:23] LABS: INTERNATIONAL NORMALIZED RATIO 1.1 RATIO; PROTHROMBIN TIME - PATIENT 12.6 SEC (9.8-11.6)
[2016-06-08] MEDS: SODIUM CHLORIDE 0.9% FLUSH 10 ML FLUSH IV FLUSH SCH ×2 (08:24→22:08)
[2016-06-08] MEDS: FUROSEMIDE 40 MG/4 ML VIAL IV PUSH SCH (08:24)
[2016-06-08] MEDS: PANTOPRAZOLE SOD 40 MG DELAYED RELEASE TAB PO SCH (08:24)
[2016-06-08] MEDS: ASPIRIN EC 81 MG TABEC PO SCH (08:24)
[2016-06-08] MEDS: methylPREDNISolone 4 MG TAB PO SCH (08:24)
[2016-06-08] MEDS: POTASSIUM CHLORIDE 10 MEQ CAP PO SCH ×2 (08:24→22:07)
[2016-06-08] MEDS: LOSARTAN 25 MG TAB PO SCH (08:24)
[2016-06-08 08:28] LABS: BICARBONATE 26.6 MEQ/L (21.0-32.0); POTASSIUM 4.8 MEQ/L (3.5-5.1)
[2016-06-08] MEDS: CARVEDILOL 6.25 MG TAB PO SCH ×2 (08:30→22:07)
[2016-06-08] MEDS ORDERED: MAGNESIUM HYDROXIDE SUSP 30 ML CUP PO ONE (09:00)
--- NOTE | 2016-06-08 09:13 | HHI.PR ---
Subjective Remarks Slept better last night. Denies any chest pain or SOB. Still using O2 at 2 l/ min NC. PO intake good. UOP good. No BM since admission. Complains of left foot pain. Has been tender for 1-2 weeks but hurt more overnight. Had pain without weight bearing overnight. No calf tenderness. Ambulating to BR with walker. Current Medications Medications (Trade) Dose Ordered Sig/David Route Start Time Stop Time Status Last Admin (NS Flush) 2 ml BID IV FLUSH 06/06/16 21:00 06/08/16 08:24 (NS Flush) 2 ml UNSCH PRN IV FLUSH 06/06/16 10:00 (Nitroglycerin 2% Oint) 1 inch Q6HR TOP 06/06/16 12:00 06/07/16 05:39 (Nitrostat Sl) 0.4 mg Q5M PRN SL 06/06/16 10:00 (Colace) 100 mg BID PRN PO 06/06/16 10:00 (Zofran Inj) 4 mg Q6H PRN IV 06/06/16 10:00 (Cozaar) 25 mg DAILY PO 06/07/16 09:00 06/08/16 08:24 (Pravachol) 20 mg HS PO 06/06/16 21:00 06/07/16 21:00 (Ecotrin Ec) 81 mg DAILY PO 06/07/16 09:00 06/08/16 08:24 (Protonix) 40 mg DAILY PO 06/07/16 09:00 06/08/16 08:24 (Medrol) 4 mg DAILY PO 06/07/16 09:00 06/08/16 08:24 (Duragesic 50 Mcg Patch.72 Hr) 1 patch Q3D T-DERMAL 06/09/16 09:00 Miscellaneous Information 1 Q3D T-DERMAL 06/12/16 09:00 (KCl) 10 meq BID PO 06/06/16 11:00 06/08/16 08:24 (Lasix Inj) 40 mg DAILY IV PUSH 06/07/16 09:00 06/08/16 08:24 (Tylenol) 1,000 mg BID PRN PO 06/07/16 08:45 (Coreg) 12.5 mg Q12HR PO 06/07/16 09:00 06/08/16 08:30 Objective Vital Signs Date Time Temp Pulse Resp B/P Pulse Ox O2 Delivery O2 Flow Rate FiO2 06/08/16 05:19 97.4 72 18 141/64 96 06/08/16 00:16 97.0 74 18 117/52 95 06/07/16 21:36 96 Nasal Cannula 2.00 06/07/16 20:45 97.9 84 20 128/60 96 06/07/16 20:13 90 06/07/16 16:00 97.1 86 20 144/72 97 06/07/16 12:00 97.5 83 20 123/57 95 I/O 06/07/16 06/07/16 06/07/16 06/08/16 06/08/16 06/08/16 07:00 15:00 23:00 07:00 15:00 23:00 Intake Total 480 ml 960 ml Output Total 175 ml 50 ml 200 ml Balance 480 ml 785 ml -50 ml -200 ml Intake Oral 480 ml 960 ml Output Urine Total 175 ml 50 ml 200 ml # Voids 3 2 # Bowel Movements 0 0 Gen: OOB in chair in NAD CV: IRRR with systolic murmur Lungs: CTA Abd: obese, soft, NT Ext: Bilat lower leg and ankle 1 + edema greater on left than right which is chronic finding. Distal pulses intact. Bilat feet warm. No calf tenderness or Francesca's sign. Left low pressure boiler tender on dorsal medial midfoot. No erythema. Result Diagram: 06/06/16 0945 06/08/16 0736 Assessment and Plan Problem List: (1) Congestive heart failure (CHF) Status: Acute Plan: Appreciate Cardiology input. Clinically patient improved. Echo pending. Chest pain may have been result of increased cardiac demand from CHF decompensation. Chest pain has resolved. Less SOB. Will change Lasix to PO. Increase activity. Wean O2. Continue Carvedilol and Losartan (usually uses Atacand at home). (2) Chronic atrial fibrillation Status: Chronic Plan: Lovenox until INR therapeutic. Resume Coumadin. Ventricular rate controlled (3) Hypertension Status: Chronic Plan: BP under adequate control (4) Hypokalemia Status: Resolved Plan: Follow K+ level. Cont supplement (5) Rheumatoid arthritis Status: Chronic Plan: Continue Medrol po (6) GERD (gastroesophageal reflux disease) Status: Chronic Plan: Cont PPI (7) Hypothyroidism Status: Chronic Plan: Cont Levothyroxine (8) Obstructive sleep apnea Status: Chronic Plan: Patient not utilizing BiPAP. States he feel claustrophobic with it (9) Left foot pain Status: Acute Plan: Has been present for 2 weeks but increased overnight. Proceed with Xray to evaluate for stress fracture. Patient is at increased risk due to chronic steroid use (10) Lumbar disc disease with radiculopathy Status: Chronic Plan: Continue Fentanyl patch Problem Qualifiers (1) Congestive heart failure (CHF): Qualified Code: I50.33 - Acute on chronic diastolic congestive heart failure (2) Hypertension: Qualified Code: I10 - Essential hypertension (3) Rheumatoid arthritis: Qualified Code: M06.09 - Rheumatoid arthritis of multiple sites with negative rheumatoid factor (4) GERD (gastroesophageal reflux disease): Qualified Code: K21.9 - Gastroesophageal reflux disease without esophagitis (5) Hypothyroidism: Qualified Code: E03.9 - Hypothyroidism, unspecified type Garrett Shaw MD Jun 08, 2016 09:13
--- NOTE | 2016-06-08 10:27 | RADRPT ---
EXAM DATE/TIME: 06/08/2016 09:11 [facility] COMPARISON: No previous studies available for comparison. INDICATIONS : Left foot pain and swelling. MEDICAL HISTORY : A-Fib. SURGICAL HISTORY : Coronary artery stent ENCOUNTER: Subsequent ACUITY: 3 days PAIN SCORE: 10/10 LOCATION: Left Foot, medial mid foot. FINDINGS: Extensive arthritic changes are noted involving the tarsal metatarsal joint and the tarsal-tarsal maxime nt. There is no acute fracture or dislocation. Arteriovascular complications are noted. Diffuse so ft tissue swelling is noted. CONCLUSION: 1. Extensive arthritic changes involving the tarsal-tarsal and tarsal-metatarsal joint. 2. No acute fracture or dislocation. 3. Arteriovascular calcifications throughout the left foot. 4. Diffuse soft tissue swelling. Drew Elaine MD on June 08, 2016 at 10:19 Board Certified Radiologist. This report was verified electronically.
[2016-06-08] MEDS: FUROSEMIDE 40 MG TAB PO SCH ×2 (10:51→14:12)
--- NOTE | 2016-06-08 10:52 | PD.CARD.PN ---
Subjective Subjective Remarks The patient denies chest pain since nitro paste was removed. Continues to have SOB greater than his baseline, but improved since admission. Left lower extremity edema > right lower extremity. INR 1.1 today. Objective Vital Signs / I&O Vital Signs Date Time Temp Pulse Resp B/P Pulse Ox O2 Delivery O2 Flow Rate FiO2 06/08/16 10:16 93 Nasal Cannula 2.00 06/08/16 05:19 97.4 72 18 141/64 96 06/08/16 00:16 97.0 74 18 117/52 95 06/07/16 21:36 96 Nasal Cannula 2.00 06/07/16 20:45 97.9 84 20 128/60 96 06/07/16 20:13 90 06/07/16 16:00 97.1 86 20 144/72 97 06/07/16 12:00 97.5 83 20 123/57 95 I/O 06/07/16 06/07/16 06/07/16 06/08/16 06/08/16 06/08/16 07:00 15:00 23:00 07:00 15:00 23:00 Intake Total 480 ml 960 ml Output Total 175 ml 50 ml 200 ml Balance 480 ml 785 ml -50 ml -200 ml Intake Oral 480 ml 960 ml Output Urine Total 175 ml 50 ml 200 ml # Voids 3 2 # Bowel Movements 0 0 Physical Exam GENERAL: Obese, elderly male, at bedside SKIN: Warm and dry. HEAD: Normocephalic. EYES: No scleral icterus. No injection or drainage. NECK: Supple, trachea midline. CARDIOVASCULAR: Irregularly irregular RESPIRATORY: Breath sounds equal bilaterally. No accessory muscle use. Nasal cannula GASTROINTESTINAL: Abdomen soft, non-tender, nondistended. MUSCULOSKELETAL: No cyanosis, 1+ BLE edema L>R, venous stasis BACK: Nontender without obvious deformity. Laboratory Laboratory Tests Test 06/08/16 07:36 Prothrombin Time 12.6 SEC Prothromb Time International 1.1 RATIO Ratio Sodium Level 138 MEQ/L Potassium Level 4.8 MEQ/L Chloride Level 101 MEQ/L Carbon Dioxide Level 26.6 MEQ/L Anion Gap 10 MEQ/L Blood Urea Nitrogen 20 MG/DL Creatinine 0.96 MG/DL Estimat Glomerular Filtration 75 ML/MIN Rate Random Glucose 75 MG/DL Calcium Level 8.3 MG/DL Imaging Last 72 hours Impressions Chest X-Ray 4/16/17 0930 Signed Impressions: Service Date/Time: Monday, June 06, 2016 09:40 - CONCLUSION: No acute cardiopulmonary disease. Antwon England MD Assessment and Plan Assessment and Plan SOB and CP, troponin X 3 negative, EKG no signs of acute ischemia CHF exacerbation- diuretics recently decreased by PCP. Symptoms improved with increased diuresis Chronic atrial fibrillation. On coumadin prior to admission. INR 1.1 today. 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 negative cardiac stress test 2012 Sleep apnea Chronic back pain PLAN Start Lovenox/coumadin bridge Continue diuresis Limit salt intake Discussed case with Dr Shaw yesterday. On the basis of the patient's comorbidities and current clinical status, we will hold off on cardiac cath at this time. He will have an ischemic workup outpatient. Assessment and plan discussed with Dr Cohn. Cyndie Leblanc Jun 08, 2016 10:51
[2016-06-08] MEDS: ENOXAPARIN SODIUM 120 MG/0.8 ML SYRINGE SQ SCH (12:00)
--- NOTE | 2016-06-08 12:03 | EC ---
Study Study Date:06/07/2016 STUDY CONCLUSIONS SUMMARY - Procedure narrative: Image quality was fair. The study was technically limited due to poor acoustic window availability. - Left ventricle: The cavity size was normal. Wall thickness was at the upper limits of normal. Systolic function was mildly reduced. The estimated ejection fraction was in the range of 45% to 50%. The study is not technically sufficient to allow evaluation of LV diastolic function. - Aortic valve: There was mild stenosis. Valve area: 1.4cm^2(VTI). Valve area: 1.34cm^2 (Vmax). If LV function is below 40, please consider prescribing an ACEI or ARB or document rationale for non-use. PROCEDURE DATA STUDY STATUS: Elective. Procedure: Transthoracic echocardiography. Image quality was fair. The study was technically limited due to poor acoustic window availability. Scanning was performed from the parasternal, apical, and subcostal acoustic windows. Study completion: The patient tolerated the procedure well. Transthoracic echocardiography. M-mode, complete 2D, complete spectral Doppler, and color Doppler. Height: Height: 70in. Weight: Weight: 253.5lb. Body mass index: BMI: 36.4kg/m^2. Body surface area: BSA: 2.31m^2. Patient status: Inpatient. CARDIAC ANATOMY LEFT VENTRICLE: The cavity size was normal. Wall thickness was at the upper limits of normal. Systolic function was mildly reduced. The estimated ejection fraction was in the range of 45% to 50%. Images were inadequate for LV wall motion assessment. The study is not technically sufficient to allow evaluation of LV diastolic function. AORTIC VALVE: Not well visualized. Moderately calcified leaflets. Doppler: There was mild stenosis. No significant regurgitation. Valve area: 1.4cm^2(VTI). Indexed valve area: 0.61cm^2/m^2 (VTI). Valve area: 1.34cm^2 (Vmax). Indexed valve area: 0.58cm^2/m^2 (Vmax). Mean gradient: 12mm Hg (S). Peak gradient: 22mm Hg (S). MITRAL VALVE: Mildly calcified annulus. Doppler: There was no evidence for stenosis. Trace regurgitation. Valve area by pressure half-time: 4.15cm^2. Indexed valve area by pressure half-time: 1.8cm^2/m^2. PULMONIC VALVE: Not well visualized. Doppler: There was no evidence for stenosis. No significant regurgitation. TRICUSPID VALVE: The valve appears to be grossly normal. Doppler: There was no evidence for stenosis. No significant regurgitation. PERICARDIUM: There was no pericardial effusion. Patient weight: 253.5lb _Ejection fraction:_ 65-75% _Fractional shortening:_ 32% up to 5Kg 5-11.5Kg 11.6-22.9Kg 23-45Kg 45-57Kg Aortic Root 7-13 <17 13-22 17-27 17-27 LA diam 6-13 <23 24-38 33-47 37-40 RVID 10-17 7-15 7-15 7-18 8-17 LVIDd 12-22 <32 24-38 33-47 37-40 LVPW 2-4 3-6 5-7 6-8 7-8 IVS 2-4 3-6 5-7 6-8 7-8 BASIC MEASUREMENTS ADULT NORMAL Left ventricle LV internal dimension, ED, chordal 47.1 mm 43-52 level, PLAX LV internal dimension, ES, chordal 34.8 mm 23-38 level, PLAX Fractional shortening, chordal level, *26 % >29 PLAX LV posterior wall thickness, ED 11.2 mm IVS/LVPW ratio, ED 1.02 <1.3 Volume, ED, MOD, 1-plane 143 ml Volume, ES, MOD, 1-plane 74 ml Ejection fraction, MOD, 1-plane 48 % Stroke volume, MOD, 1-plane 69 ml Volume index, ED, MOD, 1-plane 62 ml/m^2 Volume index, ES, MOD, 1-plane 32 ml/m^2 Stroke index, MOD, 1-plane 29.9 ml/m^2 Ventricular septum Septal thickness, ED 11.4 mm Aortic valve Leaflet separation *12 mm 15-26 Left atrium Anterior-posterior dimension 33 mm Anterior-posterior dimension index 1.43 cm/m^2 <2.2 Right ventricle RV internal dimension, ED, PLAX 28.6 mm 19-38 BASIC MEASUREMENTS ADULT NORMAL Aortic valve Leaflet separation *12 mm 15-26 Aorta Root diameter, ED 24 mm 20-37 DOPPLER MEASUREMENTS ADULT NORMAL Aortic valve Peak velocity, S 237 cm/s Mean velocity, S 156 cm/s VTI, S 39.2 cm Mean gradient, S 12 mm Hg Peak gradient, S 22 mm Hg Valve area, VTI 1.4 cm^2 Valve area index, VTI 0.61 cm^2/m^2 Valve area, Vmax 1.34 cm^2 Valve area index, Vmax 0.58 cm^2/m^2 Mitral valve Pressure half-time 53 ms Valve area, pressure half-time 4.15 cm^2 Valve area index, pressure half-time 1.8 cm^2/m^2 Pulmonic valve Peak velocity, S 100 cm/s LEGEND: Mean values are shown as u=mean value. Asterisk (*) blackburn values outside specified normal range. Prepared and signed by Srikanth Muir [id number]
[2016-06-08] MEDS ORDERED: WARFARIN SOD 5 MG TAB PO SCH (16:00)
[2016-06-08] MEDS: PRAVASTATIN SOD 20 MG TAB PO SCH (22:07)
[2016-06-09 01:57] VITALS: BP 132/73; PULSE 81; RESP 18; TEMP 98.2; O2SAT 97
[2016-06-09] MEDS: NITROGLYCERIN 2% OINT 1 GM PACKET TOP SCH (05:03)
[2016-06-09 05:08] VITALS: BP 133/74; PULSE 71; RESP 18; TEMP 98.3; O2SAT 97
[2016-06-09 07:09] LABS: HEMATOCRIT 48.6 % (39.0-51.0); MEAN CELL VOLUME 90.4 FL (80.0-100.0); MEAN CORPUSCULAR HEMOGLOBIN 29.6 PG (27.0-34.0); MEAN CORPUSCULAR HGB CONC 32.7 % (32.0-36.0); PLATELET COUNT 189 TH/MM3 (150-450); RED BLOOD COUNT 5.38 MIL/MM3 (4.50-5.90); RED CELL DISTRIBUTION WIDTH 16.7 % (11.6-17.2); REVIEW FLAG FINAL; WHITE BLOOD COUNT 8.9 TH/MM3 (4.0-11.0)
[2016-06-09 07:19] LABS: INTERNATIONAL NORMALIZED RATIO 1.1 RATIO; PROTHROMBIN TIME - PATIENT 12.2 SEC (9.8-11.6)
[2016-06-09 08:00] VITALS: BP 162/72; PULSE 74; RESP 20; TEMP 98.2; O2SAT 96
[2016-06-09] MEDS ORDERED: fentaNYL 50 MCG/HR PATCH T-DERMAL SCH (09:00)
[2016-06-09] MEDS ORDERED: CARV6.25 PO (09:18)
[2016-06-09] MEDS ORDERED: ENOX120P SQ (09:18)
[2016-06-09] MEDS ORDERED: FURO40TA PO (09:18)
[2016-06-09] MEDS ORDERED: POTA10CA PO (09:18)
[2016-06-09] MEDS ORDERED: OMEP20TA PO (09:18)
[2016-06-09] MEDS ORDERED: CAND4 PO (09:18)
[2016-06-09] MEDS ORDERED: LEVO50TA4 PO (09:18)
[2016-06-09] MEDS ORDERED: BACL10TA PO (09:18)
[2016-06-09] MEDS ORDERED: COUM5TAB PO (09:18)
--- NOTE | 2016-06-09 09:19 | HHI.PR ---
Subjective Remarks Denies SOB. O2 sat on room air 94%. Slept well with O2. Did not use BiPAP. UOP good. No chest pain. CLARKE much improved. Ambulates to BR and back without SOB. Left foot pain improved. Current Medications Medications (Trade) Dose Ordered Sig/David Route Start Time Stop Time Status Last Admin (NS Flush) 2 ml BID IV FLUSH 06/06/16 21:00 06/08/16 22:08 (NS Flush) 2 ml UNSCH PRN IV FLUSH 06/06/16 10:00 (Nitroglycerin 2% Oint) 1 inch Q6HR TOP 06/06/16 12:00 06/07/16 05:39 (Nitrostat Sl) 0.4 mg Q5M PRN SL 06/06/16 10:00 (Colace) 100 mg BID PRN PO 06/06/16 10:00 (Zofran Inj) 4 mg Q6H PRN IV 06/06/16 10:00 (Cozaar) 25 mg DAILY PO 06/07/16 09:00 06/08/16 08:24 (Pravachol) 20 mg HS PO 06/06/16 21:00 06/08/16 22:07 (Ecotrin Ec) 81 mg DAILY PO 06/07/16 09:00 06/08/16 08:24 (Protonix) 40 mg DAILY PO 06/07/16 09:00 06/08/16 08:24 (Medrol) 4 mg DAILY PO 06/07/16 09:00 06/08/16 08:24 (Duragesic 50 Mcg Patch.72 Hr) 1 patch Q3D T-DERMAL 06/09/16 09:00 Miscellaneous Information 1 Q3D T-DERMAL 06/12/16 09:00 (KCl) 10 meq BID PO 06/06/16 11:00 06/08/16 22:07 (Tylenol) 1,000 mg BID PRN PO 06/07/16 08:45 (Coreg) 12.5 mg Q12HR PO 06/07/16 09:00 06/08/16 22:07 (Coumadin) 5 mg DAILY@1600 PO 06/08/16 16:00 06/08/16 16:30 (Lasix) 40 mg BID@08,13 PO 06/08/16 09:00 06/08/16 14:12 (Lovenox Inj) 110 mg Q24H SQ 06/08/16 09:00 06/08/16 12:00 Objective Vital Signs Date Time Temp Pulse Resp B/P Pulse Ox O2 Delivery O2 Flow Rate FiO2 06/09/16 08:00 98.2 74 20 162/72 96 06/09/16 05:08 98.3 71 18 133/74 97 06/09/16 01:57 98.2 81 18 132/73 97 06/08/16 21:35 Nasal Cannula 2.00 06/08/16 20:53 98.4 98 18 120/76 98 06/08/16 19:59 91 06/08/16 16:00 98.3 84 18 115/57 95 06/08/16 12:00 98.4 88 19 102/61 94 06/08/16 11:17 70 06/08/16 10:52 97 06/08/16 10:16 93 Nasal Cannula 2.00 I/O 06/08/16 06/08/16 06/08/16 06/09/16 06/09/16 06/09/16 07:00 15:00 23:00 07:00 15:00 23:00 Intake Total 480 ml Output Total 200 ml 400 ml Balance -200 ml 480 ml -400 ml Intake Oral 480 ml Output Urine Total 200 ml 400 ml # Voids 6 # Bowel Movements 1 CV: IRRR with systolic murmur Lungs: CTA Ext: 1 + edema worse on left than right Result Diagram: 06/09/16 0630 06/08/16 0736 Other Results Echo: LVEF: 45-50% Assessment and Plan Problem List: (1) Congestive heart failure (CHF) Status: Acute Plan: Clinically improved. No further chest pain. Continue ARB and Lasix. Was on Beta Meena in past but could not tolerate due to low BP. May be able to resume as outpatient. (2) Chronic atrial fibrillation Status: Chronic Plan: Continue Coumadin. Lovenox until INR therapeutic. Ventricular rate controlled (3) Hypertension Status: Chronic Plan: BP under adequate control (4) Hypokalemia Status: Resolved Plan: Follow K+ level. Cont supplement (5) Rheumatoid arthritis Status: Chronic Plan: Continue Medrol po (6) GERD (gastroesophageal reflux disease) Status: Chronic Plan: Cont PPI (7) Hypothyroidism Status: Chronic Plan: Cont Levothyroxine (8) Obstructive sleep apnea Status: Chronic Plan: Encouraged patient to use BiPAP at night. If he does not, he should at least use O2 at 2 l/min NC (9) Left foot pain Status: Acute Plan: X-ray revealed advanced osteoarthritis. Patient reports pain is less today. Will follow. (10) Lumbar disc disease with radiculopathy Status: Chronic Plan: Continue Fentanyl patch Discharge Planning Home today with Home Health Problem Qualifiers (1) Congestive heart failure (CHF): Qualified Code: I50.33 - Acute on chronic diastolic congestive heart failure (2) Hypertension: Qualified Code: I10 - Essential hypertension (3) Rheumatoid arthritis: Qualified Code: M06.09 - Rheumatoid arthritis of multiple sites with negative rheumatoid factor (4) GERD (gastroesophageal reflux disease): Qualified Code: K21.9 - Gastroesophageal reflux disease without esophagitis (5) Hypothyroidism: Qualified Code: E03.9 - Hypothyroidism, unspecified type Garrett Shaw MD Jun 09, 2016 09:19
--- NOTE | 2016-06-09 09:21 | HHI.FF ---
Face to Face Verification Diagnosis: (1) Congestive heart failure (CHF) (2) Rheumatoid arthritis (3) Chronic atrial fibrillation (4) Hypothyroidism (5) Hypertension (6) Lumbar disc disease with radiculopathy Physical Therapy Order: Evaluate and Treat Occupational Therapy Order: Evaluate and Treat Home Health Nursing Order: Signs/symptoms of disease process CHF education Medication education-adverse effect Nursing assessment with vital signs Instructions: Nurse to obtain PT with INR twice weekly Home Health Aide Order: To Assist In: Bathing and personal care, service dog trainer and meal prep I have seen patient Goyo Caba on 06/09/16. My clinical findings support the need for the requested home health care services because: Ltd mobility - disease progression Patient has SOB Deconditioned w/ increased weakness High risk of falls I certify that my clinical findings support that this patient is homebound because: Unsteady gait/balance Unsafe to leave home unassisted Poor cardiac reserve Garrett Shaw MD Jun 09, 2016 09:21
[2016-06-09] MEDS: CARVEDILOL 6.25 MG TAB PO SCH (09:35)
[2016-06-09] MEDS: POTASSIUM CHLORIDE 10 MEQ CAP PO SCH (09:35)
[2016-06-09] MEDS: methylPREDNISolone 4 MG TAB PO SCH (09:35)
[2016-06-09] MEDS: PANTOPRAZOLE SOD 40 MG DELAYED RELEASE TAB PO SCH (09:35)
[2016-06-09] MEDS: ENOXAPARIN SODIUM 120 MG/0.8 ML SYRINGE SQ SCH (09:35)
[2016-06-09] MEDS: LOSARTAN 25 MG TAB PO SCH (09:35)
[2016-06-09] MEDS: ASPIRIN EC 81 MG TABEC PO SCH (09:35)
[2016-06-09] MEDS: FUROSEMIDE 40 MG TAB PO SCH (09:35)
[2016-06-09] MEDS: SODIUM CHLORIDE 0.9% FLUSH 10 ML FLUSH IV FLUSH SCH (09:36)
[2016-06-09 10:27] VITALS: O2SAT 96
--- NOTE | 2016-06-09 11:02 | PD.CARD.PN ---
Subjective Subjective Remarks The patient denies CP. He is tolerating room air. INR remains subtherapeutic. ( Cyndie Leblanc) Objective Vital Signs / I&O Vital Signs Date Time Temp Pulse Resp B/P Pulse Ox O2 Delivery O2 Flow Rate FiO2 06/09/16 10:27 96 Nasal Cannula 2.00 06/09/16 08:00 98.2 74 20 162/72 96 06/09/16 05:08 98.3 71 18 133/74 97 06/09/16 01:57 98.2 81 18 132/73 97 06/08/16 21:35 Nasal Cannula 2.00 06/08/16 20:53 98.4 98 18 120/76 98 06/08/16 19:59 91 06/08/16 16:00 98.3 84 18 115/57 95 06/08/16 12:00 98.4 88 19 102/61 94 06/08/16 11:17 70 I/O 06/08/16 06/08/16 06/08/16 06/09/16 06/09/16 06/09/16 07:00 15:00 23:00 07:00 15:00 23:00 Intake Total 480 ml Output Total 200 ml 400 ml Balance -200 ml 480 ml -400 ml Intake Oral 480 ml Output Urine Total 200 ml 400 ml # Voids 6 # Bowel Movements 1 Physical Exam GENERAL: Obese, elderly male, at bedside SKIN: Warm and dry. HEAD: Normocephalic. EYES: No scleral icterus. No injection or drainage. NECK: Supple, trachea midline. CARDIOVASCULAR: Irregularly irregular RESPIRATORY: Breath sounds equal bilaterally. No accessory muscle use. GASTROINTESTINAL: Abdomen soft, non-tender, nondistended. MUSCULOSKELETAL: No cyanosis, venous stasis present, 1+ BLE BACK: Nontender without obvious deformity. Laboratory Laboratory Tests Test 06/09/16 06:30 White Blood Count 8.9 TH/MM3 Red Blood Count 5.38 MIL/MM3 Hemoglobin 15.9 GM/DL Hematocrit 48.6 % Mean Corpuscular Volume 90.4 FL Mean Corpuscular Hemoglobin 29.6 PG Mean Corpuscular Hemoglobin 32.7 % Concent Red Cell Distribution Width 16.7 % Platelet Count 189 TH/MM3 Mean Platelet Volume 8.3 FL Prothrombin Time 12.2 SEC Prothromb Time International 1.1 RATIO Ratio (Cyndie Leblanc) Assessment and Plan Assessment and Plan SOB and CP, troponin X 3 negative, EKG no signs of acute ischemia Diastolic CHF exacerbation- diuretics recently decreased by PCP. Symptoms improved with increased diuresis ECHO 06/07/2016- EF 45-50%, mild Chronic atrial fibrillation. On coumadin prior to admission. INR 1.1 today. 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 negative cardiac stress test 2012 Sleep apnea Chronic back pain PLAN Continue Lovenox/coumadin bridge Continue diuresis, BB, ASA, statin and ARB Limit salt intake He will have an ischemic workup outpatient. The patient is clear from a cardiac standpoint for discharge. Assessment and plan discussed with Dr Cohn. (Cyndie Leblanc) Assessment and Plan Doing better will allow to d/c (Beka Cohn MD) Cyndie Leblanc Jun 09, 2016 11:02 Beka Cohn MD Jun 14, 2016 14:07
[2016-06-09 18:33] VITALS: PULSE 80
[2016-06-12] MEDS ORDERED: REMOVE OLD DURAGESIC (FENTANYL) PATCH T-DERMAL SCH (09:00)
--- NOTE | 2016-08-04 20:08 | HHI.DS ---
Discharge Summary Admission Date Jun 06, 2016 at 09:42 Discharge Date: Jun 09, 2016 Admitting Diagnosis angina (1) Unstable angina Diagnosis: Principal (2) Chronic atrial fibrillation Diagnosis: Secondary (3) Hypertension Diagnosis: Secondary (4) Hypothyroidism Diagnosis: Secondary (5) GERD (gastroesophageal reflux disease) Diagnosis: Secondary (6) Obstructive sleep apnea Diagnosis: Secondary (7) Lumbar disc disease with radiculopathy Diagnosis: Secondary (8) Rheumatoid arthritis Diagnosis: Secondary Brief History 86-year-old white male with history of chronic atrial fibrillation, I prescribed heart disease, hypertension, hypothyroidism and rheumatoid arthritis had been experiencing chest pressure with exertion and dyspnea on exertion for several months. This children's lunchroom supervisor, Dr. Cohn had recommended cardiac catheterization, however, the patient declined. Approximately a week prior to admission to the hospital, the patient was drinking increasing shortness of breath and was having orthopnea when trying to lie down at night. The patient' s furosemide was increased to 40 mg twice daily. He diureses 2000 cc of urine in the first day. Although the patient had some improvement initially, his contacted the undersigned physician on the day prior to admission stating that he was having increasing dyspnea on exertion, increasing orthopnea and chest pressure at night when he tried to lie down. It was recommended the patient be taken to the emergency department for further evaluation. The patient decided to wait until the next morning to see how he fell. On the morning of admission, the patient's symptoms had worsened, therefore, he contacted EMS and was transferred to this facility for further evaluation and treatment. In the emergency department patient's BNP was 127. EKG did not reveal any acute changes. The patient was felt to have unstable angina. The patient would be admitted to a medical surgical bed with telemetry to rule out acute ischemia and for cardiology consultation with possible cardiac catheterization. His Coumadin would be held in anticipation of a cardiac catheterization. He would have serial EKGs and cardiac enzymes, nitroglycerin paste and receive Lovenox subcutaneously. Hospital Course The patient was admitted to the medical surgical bed with telemetry. She was seen in consultation by Mary Rodriguez M.D. who is covering for the patient's children's lunchroom supervisor, Dr. Cohn. She recommended continue current treatment regimen and hold Coumadin in anticipation of cardiac catheterization by Dr. Cohn upon his return on Tuesday. The patient's condition did improve. He diureses vigorously with IV for a semi-. He was maintained on nitroglycerin paste without any further chest pressure. The patient was seen by Dr. Cohn and initially there was anticipation of a cardiac catheterization, however, after discussion with the patient and further consideration, Dr. Cohn felt that the patient's comorbidities resulted in a high risk for complications of a cardiac catheterization. Since the patient was asymptomatic, he recommended transitioning patient back to oral medications and resuming Coumadin utilizing Lovenox as a bridge back to therapeutic anticoagulation. The patient would then be followed up closely on an outpatient basis with possible cardiac catheterization if he had any recurrent symptoms. On the day discharge, the patient was ambulating in the room to the bathroom. He had some dyspnea on exertion but it had improved significantly since admission. He had no chest pressure with rest or activity. The patient had no further orthopnea. Oxygen saturations were >92% on room air. He was eating well. Bowels are moving and urine output was good. Was felt that he had obtained maximum benefit from hospitalization. Disposition: The patient would be discharged home with home health nursing to monitor the patient's cardiac status, educate patient on medications and to monitor INR. He would have home health physical and occupational therapy and home health aides as needed. The patient's medications are listed on the medication reconciliation sheet. He will followup with the undersigned physician in 1-2 weeks after discharge and followup with Dr. Cohn in one to 2 weeks. Patient would contact the undersigned physician, Dr. Cohn or contact EMS for any recurrent chest tightness, orthopnea, palpitations, diaphoresis, nausea or vomiting. Pt Condition on Discharge: Good Discharge Disposition: Discharge Home Discharge Instructions DIET: Follow Instructions for: Heart Healthy Diet Activities you can perform: Regular-No Restrictions Garrett Shaw MD Aug 04, 2016 20:08
== END 2016-06-09 11:24 | disposition home or self-care (01) | DRG 292 ==
LOC: NEPE 09:11 → NEDA 09:42 → N04B 14:37
PROVIDERS: ADMIT Family Medicine; ATTEND Family Medicine
DX: I50.33 Acute on chronic diastolic (congestive) heart failure (principal); I25.110 Atherosclerotic heart disease of native coronary artery with unstable angina pectoris; I48.2 Chronic atrial fibrillation; E03.9 Hypothyroidism, unspecified; E29.1 Testicular hypofunction; E78.5 Hyperlipidemia, unspecified; E87.6 Hypokalemia; G47.33 Obstructive sleep apnea (adult) (pediatric); G89.29 Other chronic pain; I11.0 Hypertensive heart disease with heart failure; K21.9 Gastro-esophageal reflux disease without esophagitis; I49.3 Ventricular premature depolarization; M06.9 Rheumatoid arthritis, unspecified; M19.90 Unspecified osteoarthritis, unspecified site; F40.240 Claustrophobia; M51.9 Unspecified thoracic, thoracolumbar and lumbosacral intervertebral disc disorder; M79.1 Myalgia; T38.0X5A Adverse effect of glucocorticoids and synthetic analogues, initial encounter; Z79.01 Long term (current) use of anticoagulants; Z79.52 Long term (current) use of systemic steroids; Z85.828 Personal history of other malignant neoplasm of skin; Z86.711 Personal history of pulmonary embolism; Z95.5 Presence of coronary angioplasty implant and graft; Z96.641 Presence of right artificial hip joint; Z96.651 Presence of right artificial knee joint
CPT/HCPCS: 71010; 73630; 80048; 80061; 82550; 83880; 84484; 85025; 85027; 85610; 85730; 93005; 93306; J1644; J1650; J1940; J3430; J7509

== ENCOUNTER 2016-11-06 13:20 | Inpatient (IN) | payer MEDICARE ==
[2016-11-06] VITALS (10 sets, daily range): BP systolic 84–119; BP diastolic 66–87; PULSE 83–120; RESP 16–22; TEMP 98.3; O2SAT 88–97
[~2016-11-06] VITALS: Ht 182.9 cm; Wt 116.1 kg
[~2016-11-06 13:20] MED LIST changes: +ANDR1.62 TOPICAL; -ANDRGEL TOP; -ASPI81TA11 PO; +ASPI81TA2 PO; -ATAC8TAB PO; +BACL10TA PO; +CAND4 PO; +CARV6.25 PO; +DICL1GEL TOPICAL; +ENOX120P SQ; +FENT50DI T-DERMAL; -FOLI1TAB PO; +FOLI1TAB4 PO; -FURO1TAB93 PO; +FURO40TA PO; +LEVO50TA4 PO; +MEDR4TAB PO; +OMEP20TA PO; +POTA10CA PO; -POTA10CA26 PO; -PRED10 PO; +ROSU20 PO; -ROSU40 PO; -VITA100018 PO
[2016-11-06] MEDS ORDERED: HYDROmorphone HCL PF 1 MG/ML VIAL IV PUSH ONE ×2 (13:45→15:45)
[2016-11-06] MEDS ORDERED: ONDANSETRON HCL 4 MG/2 ML VIAL IV PUSH ONE (13:45)
[2016-11-06] MEDS ORDERED: SODIUM CHLORIDE 0.9% FLUSH 10 ML FLUSH IVF PRN (13:45)
[2016-11-06] MEDS ORDERED: SODIUM CHLORID 0.9% 500 ML INJ 500 ML IV ONE ×3 (13:45→17:15)
--- NOTE | 2016-11-06 13:55 | PD ---
HPI Chief Complaint: bilateral leg pain Time Seen by Provider: 13:30 Travel History International Travel<30 days: No Contact w/Intl Traveler<30days: No Traveled to known affect area: No History of Present Illness HPI The patient is a 86-year-old male who presents to the emergency department via EMS for bilateral leg pain. The patient has a history of bilateral chronic venous insufficiency, has had increasing swelling and pain over the last 3 weeks. 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 The patient states her last 3 weeks he has been sleeping in a recliner secondary to the pain and edema with mild shortness of breath. He has been able to ambulate with the use of a walker to the bathroom, however, has decreased mobility. The patient states the pain has been progressing and he called his primary physician, Dr. Shaw, 2 days ago who recommended that he come to the emergency department to be evaluated. However, the patient did not want to be evaluated and was placed on doxycycline by Dr. Shaw. However, the patient's pain increased last night he is unable to control it despite the use of a fentanyl patch every 3 days. He has a history of allergies to narcotics that include altered mental status, however, according to the can take Dilaudid without difficulty. He does complain of mild shortness of breath, does have a history of atrial fibrillation. Symptoms are moderate, progressive over the last 3 weeks, and there are no current alleviating factors. PFSH Past Medical History Arthritis: Yes Asthma: No Atrial Fibrillation: Yes Blood Disorders: No Heart Rhythm Problems: Yes Cancer: Yes (MUTIPLE SKIN CANCER) Cardiac Catheterization: Yes Cardiovascular Problems: Yes ([place] , 2 STENTS ,HX OF AFIB) High Cholesterol: Yes Chemotherapy: No Chest Pain: Yes (THIS ADMISSION) Congestive Heart Failure: Yes COPD: No Diabetes: No Endocrine: No Gastrointestinal Disorders: Yes Genitourinary: Yes Headaches: Yes Hiatal Hernia: Yes Hypertension: Yes Immune Disorder: No Kidney Stones: Yes Musculoskeletal: Yes (hX BULGING DISCS CERVIAL, THORACIC,LUMBAR) Neurologic: Yes Psychiatric: No Reproductive: No Respiratory: Yes (PULMONARY EMBOLUS KRISTIN,SLEEP APNEA) Radiation Therapy: No Sleep Apnea: Yes Thyroid Disease: Yes Ulcer: Yes Past Surgical History Abdominal Surgery: No Body Medical Devices: BLOOD CLOTS BOTH LUNGS AND LEFT LEG. CELLULITIS LT LEG Cardiac Surgery: Yes (stents x 2) Coronary Stent: Yes Ear Surgery: No Endocrine Surgery: No Eye Surgery: Yes (CATARACT BILATERALLY) Genitourinary Surgery: No Gynecologic Surgery: No Joint Replacement: Yes (R KNEE, R HIP) Neurologic Surgery: No Oral Surgery: Yes (T & A) Thoracic Surgery: No Tonsillectomy: Yes Other Surgery: Yes Social History Alcohol Use: Yes (WINE 3-4 X WEEK) Tobacco Use: No Substance Use: No Allergies-Medications (Allergen,Severity, Reaction): Coded Allergies: MRI PRECAUTION (Verified Allergy, Severe, AT THIS TIME PT IS TOO LARGE BUT NOT OVER WEIGHT LIMIT JI, 06/06/16) carvedilol (Verified Allergy, Unknown, 11/06/16) morphine (Unverified Adverse Reaction, Severe, Confusion, 10/05/16) Uncoded Allergies: HYDROCODONE/ACETAMINOPHEN (Allergy, Mild, Itching, 11/03/15) LEVOFLOXIN (Adverse Reaction, Mild, NAUSEA/DIZZINESS, 11/03/15) Reported Meds & Prescriptions Reported Meds & Active Scripts Active Baclofen 10 Mg Tab 10 Mg PO BID PRN Levothyroxine (Levothyroxine Sodium) 50 Mcg Tab 50 Mcg PO DAILY Omeprazole 20 Mg Tab 20 Mg PO DAILY Atacand (Candesartan Cilexetil) 4 Mg Tab 4 Mg PO DAILY Furosemide 40 Mg Tab 40 Mg PO BID Coumadin (Warfarin) 5 Mg Tab 5 Mg PO DAILY@1600 Potassium Chloride ER (Potassium Chloride) 10 Meq Cap 10 Meq PO BID Reported Spironolactone 50 Mg Tab 50 Mg PO DAILY Alprazolam 0.25 Mg Tab 0.25 Mg PO Q8H PRN Lidoderm (Lidocaine) 5 % Adh..patch Voltaren (Diclofenac Sodium) 1 % Gel..gram. Folic Acid 1 Mg Tablet Nitrostat SL (Nitroglycerin) 0.4 Mg Subl 0.4 Mg SL ONCE PRN 1 tablet under the tongue as needed for chest pain. Repeat every 5 minutes for a total of 3 DOSES or call 911 if NO relief. Fentanyl Patch 72 HR (Fentanyl) 50 Mcg/Hr Patch 50 Mcg T-DERMAL Q3D Remove old patch when new one placed. Androgel Pump Topical (Testosterone) 1.62 % Gel 40.5 Mg TOPICAL DAILY Aspirin EC Low Dose (Aspirin) 81 Mg Tabec 81 Mg PO DAILY Crestor (Rosuvastatin Calcium) 20 Mg Tab 20 Mg PO DAILY Medrol (Methylprednisolone) 4 Mg Tab 4 Mg PO DAILY Review of Systems Except as stated in HPI: all other systems reviewed are Neg General / Constitutional: No: Fever Cardiovascular: Positive: Irregular Rhythm, Tachycardia, No: Chest Pain or Discomfort Respiratory: Positive: Shortness of Breath Gastrointestinal: No: Nausea, Vomiting, Abdominal Pain Musculoskeletal: Positive: Edema, Pain Skin: Positive Other (chronic venous stasis changes lower extremity is bilaterally) Neurologic: No: Change in Mentation Physical Exam Narrative GENERAL: Awake, alert, 86-year-old male who appears his stated age and is in no acute respiratory distress. SKIN: Focused skin assessment warm/dry. HEAD: Atraumatic. Normocephalic. EYES: Pupils equal and round. No scleral icterus. No injection or drainage. ENT: No nasal bleeding or discharge. Mucous membranes pink and moist. NECK: Trachea midline. No JVD. CARDIOVASCULAR: Irregularly irregular, tachycardic with a heart rate in the 130s. RESPIRATORY: No accessory muscle use. Diminished breath sounds in the bases bilaterally. GASTROINTESTINAL: Abdomen soft, obese, no rebound tenderness. MUSCULOSKELETAL: Chronic venous stasis changes lower extreme is bilateral with mild erythema. Open sores of the lateral aspect of the right foot but no visible bleeding or drainage. NEUROLOGICAL: Awake and alert. No obvious cranial nerve deficits. Motor grossly within normal limits. Normal speech. Nonfocal. PSYCHIATRIC: Appropriate mood and affect; insight and judgment normal. Data Data Last Documented VS Vital Signs Date Time Temp Pulse Resp B/P (MAP) Pulse Ox O2 Delivery O2 Flow Rate FiO2 11/06/16 14:59 88 Nasal Cannula 2.00 11/06/16 14:59 83 22 101/66 (78) 11/06/16 14:16 98.3 Orders Orders Electrocardiogram (11/06/16 13:44) Basic Metabolic Panel (Bmp) (11/06/16 13:44) Complete Blood Count With Diff (11/06/16 13:44) Comprehensive Metabolic Panel (11/06/16 13:44) Magnesium (Mg) (11/06/16 13:44) Prothrombin Time / Inr (Pt) (11/06/16 13:44) Act Partial Throm Time (Ptt) (11/06/16 13:44) Chest, Single Ap (11/06/16 13:44) Ecg Monitoring (11/06/16 13:44) Bilateral Bp Monitoring (11/06/16 13:44) Iv Access Insert/Monitor (11/06/16 13:44) Oximetry (11/06/16 13:44) Oxygen Administration (11/06/16 13:44) Sodium Chloride 0.9% Flush (Ns Flush) (11/06/16 13:45) Sodium Chlorid 0.9% 500 Ml Inj (Ns 500 M (11/06/16 13:45) Creatine Kinase (Cpk) (11/06/16 13:44) Lactic Acid (11/06/16 13:44) Blood Culture (11/06/16 13:44) Hydromorphone Pf Inj (Dilaudid Pf Inj) (11/06/16 13:45) Ondansetron Inj (Zofran Inj) (11/06/16 13:45) Diltiazem Drip Inj Premix (Cardizem Drip (11/06/16 15:15) Sodium Chloride 0.9% Flush (Ns Flush) (11/06/16 15:15) Sodium Chlorid 0.9% 500 Ml Inj (Ns 500 M (11/06/16 15:30) Admit Order (Ed Use Only) (11/06/16 15:19) Labs Laboratory Tests Test 11/06/16 13:57 11/06/16 14:37 White Blood Count 11.6 TH/MM3 Red Blood Count 6.01 MIL/MM3 Hemoglobin 16.4 GM/DL Hematocrit 52.0 % Mean Corpuscular Volume 86.5 FL Mean Corpuscular Hemoglobin 27.3 PG Mean Corpuscular Hemoglobin Concent 31.6 % Red Cell Distribution Width 20.6 % Platelet Count 182 TH/MM3 Mean Platelet Volume 8.3 FL Neutrophils (%) (Auto) 74.5 % Lymphocytes (%) (Auto) 17.1 % Monocytes (%) (Auto) 6.9 % Eosinophils (%) (Auto) 0.2 % Basophils (%) (Auto) 1.3 % Neutrophils # (Auto) 8.6 TH/MM3 Lymphocytes # (Auto) 2.0 TH/MM3 Monocytes # (Auto) 0.8 TH/MM3 Eosinophils # (Auto) 0.0 TH/MM3 Basophils # (Auto) 0.2 TH/MM3 CBC Comment DIFF FINAL Differential Comment Prothrombin Time 61.6 SEC Prothromb Time International Ratio 5.2 RATIO Activated Partial Thromboplast Time 38.4 SEC Blood Urea Nitrogen 18 MG/DL Creatinine 1.00 MG/DL Random Glucose 74 MG/DL Total Protein 6.1 GM/DL Albumin 2.3 GM/DL Calcium Level 8.8 MG/DL Magnesium Level 1.9 MG/DL Alkaline Phosphatase 67 U/L Aspartate Amino Transf (AST/SGOT) 15 U/L Alanine Aminotransferase (ALT/SGPT) 20 U/L Total Bilirubin 1.0 MG/DL Sodium Level 135 MEQ/L Potassium Level 4.5 MEQ/L Chloride Level 98 MEQ/L Carbon Dioxide Level 30.0 MEQ/L Anion Gap 7 MEQ/L Estimat Glomerular Filtration Rate 71 ML/MIN Total Creatine Kinase 22 U/L Lactic Acid Level 1.3 mmol/L [facility] Medical Decision Making Medical Screen Exam Complete: Yes Emergency Medical Condition: Yes Medical Record Reviewed: Yes Interpretation(s) EKG reveals atrial fibrillation with RVR, rate 116. Nonspecific ST changes. Laboratory Tests Test 11/06/16 13:57 11/06/16 14:37 White Blood Count 11.6 TH/MM3 Red Blood Count 6.01 MIL/MM3 Hemoglobin 16.4 GM/DL Hematocrit 52.0 % Mean Corpuscular Volume 86.5 FL Mean Corpuscular Hemoglobin 27.3 PG Mean Corpuscular Hemoglobin Concent 31.6 % Red Cell Distribution Width 20.6 % Platelet Count 182 TH/MM3 Mean Platelet Volume 8.3 FL Neutrophils (%) (Auto) 74.5 % Lymphocytes (%) (Auto) 17.1 % Monocytes (%) (Auto) 6.9 % Eosinophils (%) (Auto) 0.2 % Basophils (%) (Auto) 1.3 % Neutrophils # (Auto) 8.6 TH/MM3 Lymphocytes # (Auto) 2.0 TH/MM3 Monocytes # (Auto) 0.8 TH/MM3 Eosinophils # (Auto) 0.0 TH/MM3 Basophils # (Auto) 0.2 TH/MM3 CBC Comment DIFF FINAL Differential Comment Prothrombin Time 61.6 SEC Prothromb Time International Ratio 5.2 RATIO Activated Partial Thromboplast Time 38.4 SEC Blood Urea Nitrogen 18 MG/DL Creatinine 1.00 MG/DL Random Glucose 74 MG/DL Total Protein 6.1 GM/DL Albumin 2.3 GM/DL Calcium Level 8.8 MG/DL Magnesium Level 1.9 MG/DL Alkaline Phosphatase 67 U/L Aspartate Amino Transf (AST/SGOT) 15 U/L Alanine Aminotransferase (ALT/SGPT) 20 U/L Total Bilirubin 1.0 MG/DL Sodium Level 135 MEQ/L Potassium Level 4.5 MEQ/L Chloride Level 98 MEQ/L Carbon Dioxide Level 30.0 MEQ/L Anion Gap 7 MEQ/L Estimat Glomerular Filtration Rate 71 ML/MIN Total Creatine Kinase 22 U/L Lactic Acid Level 1.3 mmol/L Chest x-ray reveals elevated right hemidiaphragm. Minimal interstitial changes. Differential Diagnosis Differential diagnosis includes congestive heart failure, atrial fibrillation with RVR, pulmonary edema, chronic venous stasis DVT, cellulitis, infected wound , abscess. Narrative Course IV was established, labs are drawn and sent, and the patient was placed on cardiac telemetry monitoring and continuous pulse oximetry monitoring. EKG was ordered and interpreted. The patient's heart rate was in the 130s, would vary down into the 80s, and they go back into the 130s. Patient's blood pressure initially was 83/61, however, the patient was awake, alert, and talking. Therefore, manual blood pressure will be obtained. Blood culture and lactic acid were sent to lab. Chest x-ray was obtained. The patient was administered Dilaudid 0.5 mg intravenously and Zofran 4 mg intravenously for pain with a 500 cc bolus. Chest x-ray reveals elevated right hemidiaphragm, minimally noted interstitial edema. The patient's blood pressure initially was in the 80s/60s, he was administered 500 cc bolus and came up to 100/70. Patient's heart rate varied between 90s and 130, therefore, was placed on Cardizem drip, no bolus given secondary to blood pressure, and he was re-bolused with another 500 cc of normal saline. I discussed the patient with Dr. Wilhelm who agrees with admission. The patient appears to have edema lower extremities and chronic venous stasis changes but appears to be volume depleted with elevated white count and hemoglobin suggesting probable underlying dehydration. The patient will be admitted to the intermediate intensive care unit on Cardizem drip. Critical Care Narrative Aggregate critical care time was 35 minutes. Time to perform other separately billable procedures was not included in the critical care time. My time did not include minutes spent treating any other patients simultaneously or on activities that did not directly contribute to the patient's treatment. The services I provided to this patient were to treat and/or prevent clinically significant deterioration that could result in: Anoxia, hypoxia, flash pulmonary edema, arrhythmia, sepsis, . I provided critical care services requiring my management, as noted below: Chart data review, documentation time, medication orders and management, vital sign assessments/reviewing monitor data, ordering and reviewing lab tests, ordering and interpreting/reviewing x-rays and diagnostic studies, care of the patient and discussion of the patient with the admitting physicians. Physician Communication Physician Communication I discussed the patient with Dr. Shaw who agrees with admission. Diagnosis Primary Impression: Atrial fibrillation with RVR Additional Impression: Chronic venous stasis dermatitis of both lower extremities Admitting Information Admitting Physician Requests: Admit Condition: Stable Magnus Dela Cruz MD Nov 06, 2016 13:55
[2016-11-06] MEDS ORDERED: VOLT1GEL4 (14:16)
[2016-11-06] MEDS ORDERED: SPIR50TA PO (14:16)
[2016-11-06] MEDS ORDERED: LIDO5DIS5 (14:16)
[2016-11-06] MEDS ORDERED: FOLI1TAB6 (14:16)
[2016-11-06] MEDS ORDERED: ALPR0.25 PO (14:16)
[2016-11-06 14:19] LABS: CHLORIDE 98 MEQ/L (98-107); POTASSIUM 4.5 MEQ/L (3.5-5.1); SODIUM (NA) 135 MEQ/L (136-145)
[2016-11-06 14:23] LABS: ANION GAP 7 MEQ/L (5-15); BLOOD UREA NITROGEN 18 MG/DL (7-18); MAGNESIUM 1.9 MG/DL (1.5-2.5)
[2016-11-06 14:24] LABS: AUTOMATED NEUTROPHIL # 8.6 TH/MM3 (1.8-7.7); BASOPHIL # 0.2 TH/MM3 (0-0.2); BASOPHIL % 1.3 % (0.0-2.0); EOSINOPHIL % 0.2 % (0.0-4.0); HEMO FLAGS DIFF FINAL; LYMPH % 17.1 % (9.0-44.0); MEAN CELL VOLUME 86.5 FL (80.0-100.0); MEAN CORPUSCULAR HEMOGLOBIN 27.3 PG (27.0-34.0); MEAN CORPUSCULAR HGB CONC 31.6 % (32.0-36.0); MONO % 6.9 % (0.0-8.0); NEUT % 74.5 % (16.0-70.0); PLATELET COUNT 182 TH/MM3 (150-450); RED BLOOD COUNT 6.01 MIL/MM3 (4.50-5.90); RED CELL DISTRIBUTION WIDTH 20.6 % (11.6-17.2); WHITE BLOOD COUNT 11.6 TH/MM3 (4.0-11.0)
[2016-11-06 14:26] LABS: ALT (GPT) 20 U/L (12-78); APTT (PATIENT) 38.4 SEC (24.3-30.1); AST (GOT) 15 U/L (15-37); GLOMERULAR FILTRATION RATE 71 ML/MIN (>89); INTERNATIONAL NORMALIZED RATIO 5.2 RATIO; PROTHROMBIN TIME - PATIENT 61.6 SEC (9.8-11.6)
[2016-11-06 14:29] LABS: ALKALINE PHOSPHATASE 67 U/L (45-117)
[2016-11-06 14:31] LABS: CREATINE KINASE 22 U/L (39-308)
[2016-11-06] MEDS ORDERED: SODIUM CHLORIDE 0.9% FLUSH 5 ML FLUSH IV FLUSH PRN (15:15)
[2016-11-06] MEDS ORDERED: DILTIAZEM DRIP INJ PREMIX 125 ML IV PRN (15:15)
--- NOTE | 2016-11-06 15:31 | RADRPT ---
EXAM DATE/TIME: 11/06/2016 14:53 [facility] COMPARISON: CHEST SINGLE AP, June 06, 2016, 9:40. INDICATIONS : Short of breath, bilateral lower leg edema MEDICAL HISTORY : Congestive heart failure. SURGICAL HISTORY : None. ENCOUNTER: Initial ACUITY: 3 weeks PAIN SCORE: 0/10 LOCATION: Bilateral chest FINDINGS: No significant new focal pleural-parenchymal opacities. Mild elevation the right hemidiaphragm unchan ged from prior exam. Cardiac silhouette is enlarged. Remainder of the exam is unchanged. CONCLUSION: 1. Compensated cardiomegaly. 2. No significant interval change or acute animality. Del Munoz MD on November 06, 2016 at 15:28 Board Certified Radiologist. This report was verified electronically.
[2016-11-06] MEDS ORDERED: DIGOXIN 0.5 MG/2 ML VIAL IV PUSH ONE ×2 (17:15→20:00)
[2016-11-06] MEDS ORDERED: NITROGLYCERIN 0.4 MG SL 25 TABS/BTL SL PRN (17:45)
[2016-11-06] MEDS: SODIUM CHLOR 0.9% 1000 ML INJ 1,000 ML IV SCH (18:47)
[2016-11-06] MEDS: cefTRIAXone INJ 1,000 MG in SODIUM CHLORIDE 0.9% INJ 100 ML IV SCH (18:47)
--- NOTE | 2016-11-06 19:00 | MH ---
cc: KEVIN ESPARZA M.D. DATE OF ADMISSION: 11/06/2016 ADMITTING DIAGNOSIS: 1. Atrial fibrillation with rapid ventricular response. 2. Shortness of breath. 3. Lower extremity pain. 4. Intravascular volume depletion. HISTORY OF PRESENT ILLNESS: This 86-year white male well-known to the undersigned physician has a complex cardiac history including chronic atrial fibrillation and chronic systolic heart failure and atherosclerotic heart disease. Over the last couple weeks, the patient has had increasing lower extremity edema. He was placed on Spironolactone in addition to the Lasix 40 milligrams twice daily that he normally takes. He had a good response with a decrease in lower extremity edema; however, he has had a problem with severe chronic venous stasis. Normally he has both of his lower extremities wrapped with Pj bandages on a daily basis but recently he has had two open areas form of the right lower extremity, one on the right lateral foot and one on the distal right lower leg; the one on the distal right lower leg has been draining serous fluid. He has been treated with an Unna boot. The patient has noticed a decrease in serous drainage with the introduction of the spironolactone. The patient however, over the last couple of days, has had increasing pain in the lower extremities, worse on the right than the left and some erythema noted on the right foot and lower leg. He has had no fever, chills, night sweats. He is having so much pain in the lower extremities that he is having difficulty ambulating. The patient has a history of deep venous thrombosis in the lower extremities but he is on Coumadin and his INR is actually supratherapeutic. On the day prior to admission, the patient spoke with the undersigned physician and it was suggested that he come to the emergency department for further evaluation but he declined. He was then given a prescription for doxycycline for possible cellulitis of the right lower extremity which he has had three doses; however on the day of admission, he was experiencing shortness of breath even at rest and increasing pain the lower extremities at which point he contacted the undersigned physician and the patient was instructed to contact EMS and be transferred to this facility for further evaluation and treatment. The patient has had no nausea or vomiting. His appetite has been fair. His bowels are moving well. He has had a good urine output due to the diuretics. He has urinary frequency and urgency due to the diuretics. He has had no headaches, visual changes, tremors, lateralizing neurologic deficits. He has diffuse arthritic pain due to history of rheumatoid arthritis and advanced spinal degenerative joint disease and disk disease. He normally wears a Fentanyl patch 25 micrograms which has helped with his thoracic back pain but he has still had low lumbar back pain with radiculitis into the lower extremities and he has severe arthritis in the bilateral shoulders which causes him daily pain and decreased use of the upper extremities. PAST MEDICAL HISTORY: The patient's past medical history is significant for: 1. Rheumatoid arthritis. 2. Kidney stones. 3. Peptic ulcer disease. 4. Hyperlipidemia. 5. Depression. 6. Anxiety. 7. Cervical disk disease. 8. Lumbar disk disease. 9. Thoracic disk disease. 10. Diverticulosis. 11. History of left lower extremity DVT. 12. Chronic venous insufficiency in the bilateral lower extremities. 13. Sleep apnea for which he uses a BiPAP with supplemental oxygen. 14. Hypertension. 15. Hypogonadism. 16. Atherosclerotic heart disease status post coronary stent placement in 2006. 17. He has a history of a compression fracture of L1 in 2011 for which he underwent a kyphoplasty. 18. He has chronic atrial fibrillation. 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 20. Erectile dysfunction. 21. Left-sided trigeminal neuralgia. 22. Vitamin D deficiency. PAST SURGICAL HISTORY: His surgical history is positive for: 1. Right knee replacement in 2001. 2. Right hip replacement in 2004. 3. Carpal tunnel release on the left in 1981. 4. Bilateral cataract removal with lens implants. 5. Resection of a lumbar cyst in 2005. 6. He is status post coronary stent placement in 2006. CURRENT MEDICATIONS: His current medications are: 1. Omeprazole 40 milligrams daily. 2. Doxycycline 100 milligrams twice a day. 3. Alprazolam 0.25 milligrams one tablet at bedtime as needed for insomnia. 4. Methylprednisolone 4 milligrams one tablet daily. 5. Levothyroxine 50 micrograms daily. 6. Voltaren Gel 1% apply 4 grams to the affected joints three times a day. 7. Androgel Pump 1%, apply two pumps to the skin once daily. 8. Folic acid 1 milligram daily. 9. Crestor 20 milligrams daily. 10. Coumadin 5 milligrams daily except none on Mondays. 11. Potassium chloride ER 10 milliequivalents one tablet twice a day. 12. Furosemide 40 milligrams twice a day. 13. Baclofen 10 milligrams one-half to one tablet twice a day as needed for trigeminal neuralgia. 14. Atacand 4 milligrams daily. 15. Lidoderm patch 5% apply to the affected area and remove after 12 hours. 16. Fentanyl patch 25 micrograms, apply one patch to the skin every three days. 17. Nitroglycerin 0.4 milligrams one tablet sublingual every 5 minutes x3 PRN chest pain. 18. Enteric coated aspirin 81 milligrams one tablet daily. ALLERGIES: 1. HYDROCODONE CAUSED ITCHING. 2. LEVOFLOXACIN CAUSED NAUSEA, DIZZINESS AND ACHILLES TENDON PAIN. FAMILY HISTORY: Noncontributory. SOCIAL HISTORY: He is . Retired. He does not smoke. He lives with his . He previously drank one to two alcoholic beverages daily but he has had no alcohol consumption since February of 2016. IMMUNIZATION HISTORY: 1. The patient has had a Pneumococcal vaccination in February of 2005. 2. Influenza vaccination was last given on November 24, 2015. 3. Zoster vaccination given in November of 2007. 4. TDAP given in December of 2011. REVIEW OF SYSTEMS: Please refer to the history of present illness. PHYSICAL EXAMINATION: VITAL SIGNS: Upon arrival to the emergency department, the patient's blood pressure was 84/70 with a heart rate of 120, respirations 18, temperature 98.3 degrees Fahrenheit, oxygen saturation on room air on two liters per minute per nasal cannula was 93%. GENERAL: In general this is a morbidly obese elderly white male sitting up on a stretcher in no acute distress with oxygen in place. HEAD, EYES, EARS, NOSE, THROAT: The pupils are equal round and reactive to light. Nares are intact. Sclerae anicteric. Conjunctive are pink. Bilateral lens implants in place. Mouth and throat reveal moist mucous membranes. No erythema, exudates. Dentition is good. The patient is missing several teeth. NECK: Neck is supple without lymphadenopathy, JVD or thyromegaly. Trachea midline. CARDIOVASCULAR: Cardiovascular examination revealed a regular rate and rhythm with a soft systolic murmur but no rubs or gallops. LUNGS: Lungs revealed a few bibasilar rales but no rhonchi. No wheezes. ABDOMEN: Obese, soft, nontender, nondistended but palpation limited due to the obesity. & RECTAL: Deferred. EXTREMITIES: The bilateral lower extremities revealed 1+ edema. There is tenderness to palpation diffusely in the bilateral lower extremities, worse on the right distal lower leg and foot which is exquisitely tender even to light touch. The patient has diffuse duskiness of the bilateral lower extremities consistent with chronic venous stasis changes. The right lateral distal lower leg reveals a 1.5 x 1.5-cm area of crusting without any definite open areas at this point and no drainage. The right lateral mid foot reveals a 1.0 x 1.5 cm open area and there is noted to be some erythema extending from that area proximally to the ankle and then there is additional increased erythema noted on the lateral distal lower leg. NEUROLOGIC: Nonfocal. He is awake, alert and oriented x3. Mental status is at baseline. LABORATORY DATA: His white blood cell count is 11.6, hemoglobin 16.6, hematocrit 52, platelet count 182,000, white blood cell count differential revealed 74.5 polys, 17.1 lymphocytes at 6.9 monocytes. The comprehensive metabolic profile is significant for sodium 135, BUN and creatinine were normal at 18 and 1.0. His total protein was low at 6.1 with albumin of 2.3. CK was normal at 22. INR was 5.2, APTT 38.4. IMAGING STUDIES: Chest x-ray was read as compensated cardiomegaly. No significant interval change or acute abnormality. EKGS: EKG revealed atrial fibrillation with rapid ventricular response. The EKG was compared to prior EKG done in the undersigned physician's office in July of 2015 and there has been no significant change except for the increase in heart rate. IMPRESSION AND PLAN: 1. This 86-year-old white male presents with shortness of breath which has been worsening over the last several days and now is present at rest. He was found to have atrial fibrillation with a rapid ventricular response with his known cardiac disease. It is quite possible that the rapid atrial fibrillation has decreased cardiac deficiency causing the shortness of breath. The patient was placed on supplemental oxygen. He was given Cardizem IV in the emergency department and then started on a drip; however, his systolic blood pressure dropped into the 80s. He was given several boluses of IV fluids. At this point, the Cardizem drip has been discontinued. The patient was given Digoxin 0.25 milligrams IV. His heart rate is ranging between 95 and 110. He is feeling better with regard to shortness of breath. He has been placed on supplemental oxygen. The patient's laboratory studies indicate that he likely has intravascular volume depletion which is likely from the increase in diuretics. At this point, the patient has received a total of 1500 cc of normal saline IV bolus and will continue with a maintenance rate of IV fluids, monitor intake and output closely, hold the patient's diuretics, monitor renal function and electrolytes. Will provide the patient with additional dosage of digoxin later this evening and then begin a scheduled dosage daily. The patient had previously been on amiodarone but had recurrent atrial fibrillation with the amiodarone, so it was discontinued. Will discuss his condition with his freight forwarder, Dr. Cohn, when he is available. In the meantime, will monitor the patient closely in the step-down unit and if necessary, consult the freight forwarder covering for Dr. Cohn. 2. Coumadin toxicity. The patient's INR is extremely high. Will hold Coumadin. Will check INR on a daily basis and if necessary, provide some vitamin K. The patient will need to be placed back on Coumadin once INR is therapeutic. 3. Atherosclerotic heart disease. The patient is asymptomatic for any exertional chest pain or chest pain at rest. I do not think we are dealing with an acute ischemic event. He will continue with his aspirin and at this point, will hold any scheduled nitroglycerin as he is hypotensive. 4. Cellulitis of the right lower extremity. The patient was placed on Rocephin IV. I have ordered wound care for the right lower extremity and will follow the patient clinically. 5. Gastroesophageal reflux disease. The patient normally takes omeprazole and will begin pantoprazole due to formulary change in the hospital. 6. Hypothyroidism. Continue the patient on current dosage of levofloxacin, check TSH and adjust dosage as needed. 7. Diffuse musculoskeletal pain including spinal pain. The patient will continue with a Fentanyl patch. He did receive a small dose of Dilaudid in the emergency room for the pain in the lower extremities and it did help. Will provide the patient with p.r.n. doses of Dilaudid but will use it very cautiously. I have explained the patient's condition and plan of care to both the patient and his and they both expressed understanding and agreement. MD LUCAS Vaz/ELIZABETH /6:02 PM /6:26 PM
[2016-11-06] MEDS ORDERED: fentaNYL 25 MCG/HR PATCH T-DERMAL SCH (20:00)
[2016-11-07] VITALS (10 sets, daily range): BP systolic 102–107; BP diastolic 48–66; PULSE 86–108; RESP 19–30; TEMP 97.8–99.3; O2SAT 91–96
[2016-11-07] MEDS: LEVOTHYROXINE SODIUM 50 MCG TAB PO SCH (06:31)
[2016-11-07] MEDS: HYDROmorphone HCL PF 1 MG/ML VIAL IV PUSH PRN ×5 (06:32→22:54)
[2016-11-07] MEDS: SODIUM CHLOR 0.9% 1000 ML INJ 1,000 ML IV SCH ×2 (07:53→22:01)
--- NOTE | 2016-11-07 08:57 | HHI.PR ---
Subjective Remarks HR 90-110 bpm. SBP 100-110. Patient reports less pain in left lower extremity but still painful on right. Taking po well. Less SOB. Comfortable with O2 at 2 l/min NC. Complains of back pain. Dilaudid helps. Current Medications Medications (Trade) Dose Ordered Sig/David Route Start Time Stop Time Status Last Admin (NS Flush) 2 ml UNSCH PRN IVF 11/06/16 13:45 Diltiazem HCl 125 ml @ 5 mls/hr TITRATE PRN IV 11/06/16 15:15 11/06/16 15:40 (NS Flush) 2 ml UNSCH PRN IV FLUSH 11/06/16 15:15 Sodium Chloride 1,000 ml @ 84 mls/hr [id number] IV 11/06/16 17:45 11/07/16 07:53 Ceftriaxone Sodium 1000 mg/ Sodium Chloride 100 ml @ 200 mls/hr Q24H IV 11/06/16 18:00 11/06/16 18:47 (Xanax) 0.25 mg Q8H PRN PO 11/06/16 17:45 (Ecotrin Ec) 81 mg DAILY PO 11/07/16 09:00 (Synthroid) 50 mcg DAILY@0600 PO 11/07/16 06:00 11/07/16 06:31 (Medrol) 4 mg DAILY PO 11/07/16 09:00 (Nitrostat Sl) 0.4 mg UNSCH X1 PRN SL 11/06/16 17:45 11/08/16 17:44 (Cozaar) 25 mg DAILY PO 11/07/16 09:00 (Dilaudid Pf Inj) 0.5 mg Q4H PRN IV PUSH 11/06/16 18:00 11/07/16 06:32 (Duragesic 25 Mcg Patch.72 Hr) 1 patch Q3D T-DERMAL 11/06/16 20:00 11/06/16 22:01 (Bactroban 2% Oint) 1 applic DAILY TOPICAL 11/06/16 20:00 (Protonix) 40 mg DAILY PO 11/07/16 21:00 Objective Vital Signs Date Time Temp Pulse Resp B/P (MAP) Pulse Ox O2 Delivery O2 Flow Rate FiO2 11/07/16 08:28 93 Nasal Cannula 2.00 11/07/16 06:00 102 11/07/16 04:00 98 11/07/16 02:00 96 11/06/16 22:40 95 Nasal Cannula 3.00 11/06/16 20:45 11/06/16 20:08 103 18 119/87 (98) 97 Nasal Cannula 11/06/16 18:42 104 119/67 (84) 96 Nasal Cannula 2.00 11/06/16 17:57 95 116/77 (90) 96 Nasal Cannula 2.00 11/06/16 17:37 98.3 115 16 101/72 (82) 94 11/06/16 17:20 110 87/76 11/06/16 17:19 115 87/76 (80) 96 Nasal Cannula 2.00 11/06/16 16:21 117 104/81 11/06/16 16:12 120 102/79 (87) 95 11/06/16 15:40 120 101/66 11/06/16 14:59 88 Nasal Cannula 2.00 11/06/16 14:59 83 22 101/66 (78) 88 Nasal Cannula 2.00 11/06/16 14:19 92 11/06/16 14:16 98.3 120 18 84/70 (75) 93 I/O 11/06/16 11/06/16 11/06/16 11/07/16 11/07/16 11/07/16 07:00 15:00 23:00 07:00 15:00 23:00 Intake Total 1584 ml 812 ml Output Total 100 ml 425 ml Balance 1484 ml -425 ml 812 ml Intake IV Total 1584 ml 812 ml Output Urine Total 100 ml 425 ml Gen: Obese elderly WM lying in bed in NAD CV: IRRR with systolic murmur Lungs: CTA Abd: Obese, soft, NT, +BS Ext: right lower leg and excelsior machine tender to light palpation. Left lateral foot open wound. Surrounding erythema. Intact distal pulses left lower leg and foot mildly tender to palpation, no erythema, pulses intact Result Diagram: 11/06/16 1357 11/06/16 1357 Assessment and Plan Problem List: (1) Atrial fibrillation with RVR ICD Codes: I48.91 - Unspecified atrial fibrillation Status: Acute Plan: Ventricular rate improved with digoxin. Will add low dose Diltiazem. (2) Coumadin toxicity ICD Codes: T45.511A - Poisoning by anticoagulants, accidental (unintentional), initial encounter Status: Acute Plan: Coumadin on hold. Resume when INR therapeutic (3) Cellulitis and abscess of foot ICD Codes: L03.119 - Cellulitis of unspecified part of limb; L02.619 - Cutaneous abscess of unspecified foot Status: Acute Plan: Wound care to open area right foot. Day 2 Rocephin. (4) Congestive heart failure (CHF) ICD Codes: I50.9 - Heart failure, unspecified Status: Chronic Plan: Normally receives Lasix bid but patient presented with intravascular volume depletion. Lasix on hold. Will resume when able. Cont ARB. Patient has not been able to tolerate Beta Meena due to hypotension. (5) Obstructive sleep apnea ICD Codes: G47.33 - Obstructive sleep apnea (adult) (pediatric) Status: Chronic Plan: Patient will utilize home Bipap with O2 at 3 l/min (6) GERD (gastroesophageal reflux disease) ICD Codes: K21.9 - Gastro-esophageal reflux disease without esophagitis Status: Chronic Plan: Cont PPI (7) Hypothyroidism ICD Codes: E03.9 - Hypothyroidism, unspecified Status: Chronic Plan: TSH pending. Adjust Levothyroxine dose if needed (8) Rheumatoid arthritis ICD Codes: M06.9 - Rheumatoid arthritis, unspecified Status: Chronic Plan: Cont Medrol (9) Lumbar disc disease with radiculopathy ICD Codes: M51.16 - Intervertebral disc disorders with radiculopathy, lumbar region Status: Chronic Plan: Will increase Fentanyl patch to 50 mcg/hr. Dilaudid prn breakthrough pain Problem Qualifiers (1) Coumadin toxicity: Qualified Codes: T45.511A - Poisoning by anticoagulants, accidental ( unintentional), initial encounter (2) Congestive heart failure (CHF): Qualified Codes: I50.22 - Chronic systolic (congestive) heart failure (3) GERD (gastroesophageal reflux disease): Qualified Codes: K21.9 - Gastro-esophageal reflux disease without esophagitis (4) Hypothyroidism: Qualified Codes: E03.9 - Hypothyroidism, unspecified (5) Rheumatoid arthritis: Qualified Codes: M05.9 - Rheumatoid arthritis with rheumatoid factor, unspecified Garrett Shaw MD Nov 07, 2016 08:57
[2016-11-07] MEDS ORDERED: TESTOSTERONE 40.5 MG TOPICAL SCH (09:00)
[2016-11-07 09:13] LABS: BICARBONATE 28.8 MEQ/L (21.0-32.0)
[2016-11-07 09:14] LABS: INTERNATIONAL NORMALIZED RATIO 5.9 RATIO; PROTHROMBIN TIME - PATIENT 69.9 SEC (9.8-11.6)
[2016-11-07] MEDS: MUPIROCIN 2% OINT 22 GM TUBE TOPICAL SCH (09:32)
[2016-11-07] MEDS: methylPREDNISolone 4 MG TAB PO SCH (09:32)
[2016-11-07] MEDS: DILTIAZEM HCL 30 MG TAB PO SCH ×2 (09:32→22:01)
[2016-11-07] MEDS: DIGOXIN 0.125 MG TAB PO SCH (09:33)
[2016-11-07] MEDS: fentaNYL 50 MCG/HR PATCH T-DERMAL SCH (09:33)
[2016-11-07] MEDS: ASPIRIN EC 81 MG TABEC PO SCH (09:33)
[2016-11-07] MEDS: LOSARTAN 25 MG TAB PO SCH (09:33)
--- NOTE | 2016-11-07 12:58 | EKG ---
Date Performed: 11/06/2016 Time Performed: 14:31:11 PTAGE: 86 years EKG: ATRIAL FIBRILLATION WITH RAPID VENTRICULAR RESPONSE ST DEPRESSION, CONSIDER ANTEROLATERAL I SCHEMIA ABNORMAL ECG PREVIOUS TRACING : 06/07/2016 10.30 Compared to previous tracing, PVCs are no longer present. DOCTOR: Yusuf Hernandez Interpretating Date/Time 11/07/2016 12:56:40
[2016-11-07] MEDS ORDERED: ARTIFICIAL TEARS OPTH SOLN 15 ML BTL EACH EYE PRN (17:45)
[2016-11-07] MEDS: cefTRIAXone INJ 1,000 MG in SODIUM CHLORIDE 0.9% INJ 100 ML IV SCH (17:54)
[2016-11-07] MEDS: PANTOPRAZOLE SOD 40 MG DELAYED RELEASE TAB PO SCH (22:01)
[2016-11-07] MEDS: MUPIROCIN 2% OINT 1 APPLIC/GM SYR NASAL SCH (22:02)
[2016-11-08] VITALS (7 sets, daily range): BP systolic 109–136; BP diastolic 61–90; PULSE 66–106; RESP 13–25; TEMP 96.6–98.9; O2SAT 93–97
[2016-11-08] MEDS: LEVOTHYROXINE SODIUM 50 MCG TAB PO SCH (05:42)
[2016-11-08] MEDS: HYDROmorphone HCL PF 1 MG/ML VIAL IV PUSH PRN ×5 (05:43→23:35)
--- NOTE | 2016-11-08 08:39 | HHI.PR ---
Subjective Remarks HR under better control. Less SOB. Slept well with BiPAP. Less pain in right foot. UOP adequate. Current Medications Medications (Trade) Dose Ordered Sig/David Route Start Time Stop Time Status Last Admin (NS Flush) 2 ml UNSCH PRN IVF 11/06/16 13:45 (NS Flush) 2 ml UNSCH PRN IV FLUSH 11/06/16 15:15 Sodium Chloride 1,000 ml @ 84 mls/hr [id number] IV 11/06/16 17:45 11/07/16 22:01 Ceftriaxone Sodium 1000 mg/ Sodium Chloride 100 ml @ 200 mls/hr Q24H IV 11/06/16 18:00 11/07/16 17:54 (Xanax) 0.25 mg Q8H PRN PO 11/06/16 17:45 (Ecotrin Ec) 81 mg DAILY PO 11/07/16 09:00 11/07/16 09:33 (Synthroid) 50 mcg DAILY@0600 PO 11/07/16 06:00 11/08/16 05:42 (Medrol) 4 mg DAILY PO 11/07/16 09:00 11/07/16 09:32 (Nitrostat Sl) 0.4 mg UNSCH X1 PRN SL 11/06/16 17:45 11/08/16 17:44 (Cozaar) 25 mg DAILY PO 11/07/16 09:00 11/07/16 09:33 (Dilaudid Pf Inj) 0.5 mg Q4H PRN IV PUSH 11/06/16 18:00 11/08/16 05:43 (Bactroban 2% Oint) 1 applic DAILY TOPICAL 11/06/16 20:00 11/07/16 09:32 (Protonix) 40 mg DAILY PO 11/07/16 21:00 11/07/16 22:01 (Lanoxin) 0.125 mg DAILY PO 11/07/16 09:00 11/07/16 09:33 (Cardizem) 30 mg BID PO 11/07/16 09:00 11/07/16 22:01 (Duragesic 50 Mcg Patch.72 Hr) 1 patch Q3D T-DERMAL 11/07/16 09:00 11/07/16 09:33 Miscellaneous Information 1 Q3D T-DERMAL 11/10/16 09:00 (Tears Naturale Opth Soln) 2 drop Q4H PRN EACH EYE 11/07/16 17:45 (Bactroban Nasal 2% Oint) Apply to NASAL WOUND BID NASAL 11/07/16 21:00 11/07/16 22:02 Objective Vital Signs Date Time Temp Pulse Resp B/P (MAP) Pulse Ox O2 Delivery O2 Flow Rate FiO2 11/08/16 04:00 88 11/08/16 04:00 88 25 11/08/16 00:00 98.5 90 13 11/08/16 00:00 90 11/07/16 23:00 94 3.00 11/07/16 20:45 94 Nasal Cannula 2.00 11/07/16 20:00 97.8 98 24 107/66 (80) 11/07/16 20:00 98 11/07/16 19:00 90 Nasal Cannula 2.00 11/07/16 16:00 98.8 86 19 102/48 (66) 94 11/07/16 16:00 86 11/07/16 12:00 96 11/07/16 12:00 98.4 96 30 103/59 (74) 91 I/O 11/07/16 11/07/16 11/07/16 11/08/16 11/08/16 11/08/16 07:00 15:00 23:00 07:00 15:00 23:00 Intake Total 1132 ml 1419 ml Output Total 425 ml 200 ml 650 ml 200 ml Balance -425 ml 932 ml 769 ml -200 ml Intake Oral 320 ml 480 ml IV Total 812 ml 939 ml Output Urine Total 425 ml 200 ml 650 ml 200 ml Stool Total 0 ml CV: IRRR with ssytolic murmur Lungs: CTA Abd: soft, NT, ND, obese Ext: Right foot decreased erythema lateral and dorsal foot. Open wound lateral midfoot Left foot without edema or erythema Result Diagram: 11/06/16 1357 11/07/16 0854 Assessment and Plan Problem List: (1) Atrial fibrillation with RVR ICD Codes: I48.91 - Unspecified atrial fibrillation Status: Acute Plan: Ventricular rate controlled with digoxin and diltiazem. (2) Coumadin toxicity ICD Codes: T45.511A - Poisoning by anticoagulants, accidental (unintentional), initial encounter Status: Acute Plan: Coumadin on hold. INR higher today. Will given Vitamin K (3) Cellulitis and abscess of foot ICD Codes: L03.119 - Cellulitis of unspecified part of limb; L02.619 - Cutaneous abscess of unspecified foot Status: Acute Plan: Day 3 Rocephin. Clinically improving (4) Congestive heart failure (CHF) ICD Codes: I50.9 - Heart failure, unspecified Status: Chronic Plan: Lasix on hold. Will resume when able. Cont ARB. Patient has not been able to tolerate Beta Meena due to hypotension. (5) Obstructive sleep apnea ICD Codes: G47.33 - Obstructive sleep apnea (adult) (pediatric) Status: Chronic Plan: Cont Bipap with O2 at 3 l/min at bedtime (6) GERD (gastroesophageal reflux disease) ICD Codes: K21.9 - Gastro-esophageal reflux disease without esophagitis Status: Chronic Plan: Cont PPI (7) Hypothyroidism ICD Codes: E03.9 - Hypothyroidism, unspecified Status: Chronic Plan: TSH therapeutic. Cont Levothyroxine (8) Rheumatoid arthritis ICD Codes: M06.9 - Rheumatoid arthritis, unspecified Status: Chronic Plan: Cont Medrol (9) Lumbar disc disease with radiculopathy ICD Codes: M51.16 - Intervertebral disc disorders with radiculopathy, lumbar region Status: Chronic Plan: Cont Fentanyl patch to 50 mcg/hr. Dilaudid prn breakthrough pain Problem Qualifiers (1) Coumadin toxicity: Qualified Codes: T45.511A - Poisoning by anticoagulants, accidental ( unintentional), initial encounter (2) Congestive heart failure (CHF): Qualified Codes: I50.22 - Chronic systolic (congestive) heart failure (3) GERD (gastroesophageal reflux disease): Qualified Codes: K21.9 - Gastro-esophageal reflux disease without esophagitis (4) Hypothyroidism: Qualified Codes: E03.9 - Hypothyroidism, unspecified (5) Rheumatoid arthritis: Qualified Codes: M05.9 - Rheumatoid arthritis with rheumatoid factor, unspecified Garrett Shaw MD Nov 08, 2016 08:39
[2016-11-08] MEDS: PANTOPRAZOLE SOD 40 MG DELAYED RELEASE TAB PO SCH (08:50)
[2016-11-08] MEDS: LOSARTAN 25 MG TAB PO SCH (08:50)
[2016-11-08] MEDS: DIGOXIN 0.125 MG TAB PO SCH (08:52)
[2016-11-08] MEDS: ASPIRIN EC 81 MG TABEC PO SCH (08:53)
[2016-11-08] MEDS: DILTIAZEM HCL 30 MG TAB PO SCH ×2 (08:53→21:14)
[2016-11-08] MEDS: methylPREDNISolone 4 MG TAB PO SCH (08:53)
[2016-11-08] MEDS: MUPIROCIN 2% OINT 1 APPLIC/GM SYR NASAL SCH ×2 (08:54→21:14)
[2016-11-08] MEDS: MUPIROCIN 2% OINT 22 GM TUBE TOPICAL SCH (08:54)
[2016-11-08 09:48] LABS: INTERNATIONAL NORMALIZED RATIO 2.9 RATIO
[2016-11-08] MEDS ORDERED: PHYTONADIONE INJ 10 MG in DEXTROSE 5% IN WATER INJ 50 ML IV ONE ×2 (10:00)
[2016-11-08] MEDS: cefTRIAXone INJ 1,000 MG in SODIUM CHLORIDE 0.9% INJ 100 ML IV SCH (17:43)
[2016-11-08] MEDS ORDERED: MAGNESIUM HYDROXIDE SUSP 30 ML CUP PO SCH (23:00)
[2016-11-08] MEDS: ALPRAZolam 0.25 MG TAB PO PRN (23:34)
[2016-11-09] VITALS (8 sets, daily range): BP systolic 114–153; BP diastolic 77–88; PULSE 75–101; RESP 18–20; TEMP 97.2–97.9; O2SAT 93–97
[2016-11-09 06:14] LABS: POTASSIUM 5.2 MEQ/L (3.5-5.1)
[2016-11-09 06:20] LABS: BICARBONATE 30.5 MEQ/L (21.0-32.0)
[2016-11-09 06:36] LABS: INTERNATIONAL NORMALIZED RATIO 1.2 RATIO; PROTHROMBIN TIME - PATIENT 13.3 SEC (9.8-11.6)
[2016-11-09] MEDS: LEVOTHYROXINE SODIUM 50 MCG TAB PO SCH (06:59)
[2016-11-09] MEDS: LOSARTAN 25 MG TAB PO SCH (08:45)
[2016-11-09] MEDS: MUPIROCIN 2% OINT 1 APPLIC/GM SYR NASAL SCH ×2 (08:45→21:07)
[2016-11-09] MEDS: PANTOPRAZOLE SOD 40 MG DELAYED RELEASE TAB PO SCH (08:45)
[2016-11-09] MEDS: DIGOXIN 0.125 MG TAB PO SCH (08:45)
--- NOTE | 2016-11-09 08:45 | HHI.PR ---
Subjective Remarks Ventricular rate controlled with current medication. BP higher. Denies chest pain or SOB with O2 in place. No BM since admission. Given MOM last night. Appetite good. Still has pain in left foot and leg but less. Has remained afebrile. Current Medications Medications (Trade) Dose Ordered Sig/David Route Start Time Stop Time Status Last Admin (NS Flush) 2 ml UNSCH PRN IVF 11/06/16 13:45 (NS Flush) 2 ml UNSCH PRN IV FLUSH 11/06/16 15:15 Ceftriaxone Sodium 1000 mg/ Sodium Chloride 100 ml @ 200 mls/hr Q24H IV 11/06/16 18:00 11/08/16 17:43 (Xanax) 0.25 mg Q8H PRN PO 11/06/16 17:45 11/08/16 23:34 (Ecotrin Ec) 81 mg DAILY PO 11/07/16 09:00 11/08/16 08:53 (Synthroid) 50 mcg DAILY@0600 PO 11/07/16 06:00 11/09/16 06:59 (Medrol) 4 mg DAILY PO 11/07/16 09:00 11/08/16 08:53 (Cozaar) 25 mg DAILY PO 11/07/16 09:00 11/08/16 08:50 (Dilaudid Pf Inj) 0.5 mg Q4H PRN IV PUSH 11/06/16 18:00 11/08/16 23:35 (Bactroban 2% Oint) 1 applic DAILY TOPICAL 11/06/16 20:00 11/08/16 08:54 (Protonix) 40 mg DAILY PO 11/07/16 21:00 11/08/16 08:50 (Lanoxin) 0.125 mg DAILY PO 11/07/16 09:00 11/08/16 08:52 (Cardizem) 30 mg BID PO 11/07/16 09:00 11/08/16 21:14 (Duragesic 50 Mcg Patch.72 Hr) 1 patch Q3D T-DERMAL 11/07/16 09:00 11/07/16 09:33 Miscellaneous Information 1 Q3D T-DERMAL 11/10/16 09:00 (Tears Naturale Opth Soln) 2 drop Q4H PRN EACH EYE 11/07/16 17:45 (Bactroban Nasal 2% Oint) Apply to NASAL WOUND BID NASAL 11/07/16 21:00 11/08/16 21:14 Objective Vital Signs Date Time Temp Pulse Resp B/P (MAP) Pulse Ox O2 Delivery O2 Flow Rate FiO2 11/09/16 08:20 Nasal Cannula 3.00 11/09/16 00:00 97.9 81 20 127/84 (98) 97 11/08/16 20:25 97 Nasal Cannula 3.00 11/08/16 20:00 Nasal Cannula 3.00 11/08/16 20:00 89 11/08/16 20:00 98.9 106 20 136/90 (105) 97 11/08/16 18:00 96.6 85 18 122/81 (95) 95 11/08/16 12:00 97.4 96 18 113/68 (83) 97 11/08/16 10:00 94 Nasal Cannula 3.00 I/O 11/08/16 11/08/16 11/08/16 11/09/16 11/09/16 11/09/16 07:00 15:00 23:00 07:00 15:00 23:00 Intake Total 1001 ml Output Total 200 ml 100 ml Balance -200 ml 901 ml IV Total 1001 ml Output Urine Total 200 ml 100 ml CV: IRRR with high pitched systolic murmur Lungs: CTA Abd: obese, mod distended, soft, +BS Ext: LLE: 2+ pedal edema RLE: wounds distal lateral lower leg and lateral midfoot. Erythema akash foot decreased since yesterday. 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 Begin Lovenox until INR therapeutic (2) Coumadin toxicity ICD Codes: T45.511A - Poisoning by anticoagulants, accidental (unintentional), initial encounter Status: Resolved Plan: INR WNL after Vit K. Will resume Coumadin and follow INR (3) Cellulitis and abscess of foot ICD Codes: L03.119 - Cellulitis of unspecified part of limb; L02.619 - Cutaneous abscess of unspecified foot Status: Acute Plan: Day 4 Rocephin. Clinically improving (4) Congestive heart failure (CHF) ICD Codes: I50.9 - Heart failure, unspecified Status: Chronic Plan: Resume Lasix 40 mg daily. Cont ARB. Patient has not been able to tolerate Beta Meena due to hypotension. (5) Obstructive sleep apnea ICD Codes: G47.33 - Obstructive sleep apnea (adult) (pediatric) Status: Chronic Plan: Cont Bipap with O2 at 3 l/min at bedtime (6) GERD (gastroesophageal reflux disease) ICD Codes: K21.9 - Gastro-esophageal reflux disease without esophagitis Status: Chronic Plan: Cont PPI (7) Hypothyroidism ICD Codes: E03.9 - Hypothyroidism, unspecified Status: Chronic Plan: TSH therapeutic. Cont Levothyroxine (8) Rheumatoid arthritis ICD Codes: M06.9 - Rheumatoid arthritis, unspecified Status: Chronic Plan: Cont Medrol (9) Lumbar disc disease with radiculopathy ICD Codes: M51.16 - Intervertebral disc disorders with radiculopathy, lumbar region Status: Chronic Plan: Cont Fentanyl patch to 50 mcg/hr. Dilaudid prn breakthrough pain (10) Constipation ICD Codes: K59.00 - Constipation, unspecified Status: Acute Plan: Begin daily Colace and MOM will be given again this am Problem Qualifiers (1) Coumadin toxicity: Qualified Codes: T45.511A - Poisoning by anticoagulants, accidental ( unintentional), initial encounter (2) Congestive heart failure (CHF): Qualified Codes: I50.22 - Chronic systolic (congestive) heart failure (3) GERD (gastroesophageal reflux disease): Qualified Codes: K21.9 - Gastro-esophageal reflux disease without esophagitis (4) Hypothyroidism: Qualified Codes: E03.9 - Hypothyroidism, unspecified (5) Rheumatoid arthritis: Qualified Codes: M05.9 - Rheumatoid arthritis with rheumatoid factor, unspecified (6) Constipation: Qualified Codes: K59.00 - Constipation, unspecified Garrett Shaw MD Nov 09, 2016 08:45
[2016-11-09] MEDS: ASPIRIN EC 81 MG TABEC PO SCH (08:46)
[2016-11-09] MEDS: DILTIAZEM HCL 30 MG TAB PO SCH ×2 (08:46→21:07)
[2016-11-09] MEDS: MUPIROCIN 2% OINT 22 GM TUBE TOPICAL SCH (08:48)
[2016-11-09] MEDS ORDERED: MAGNESIUM HYDROXIDE SUSP 30 ML CUP PO ONE (10:00)
[2016-11-09] MEDS: methylPREDNISolone 4 MG TAB PO SCH (12:19)
[2016-11-09] MEDS: FUROSEMIDE 40 MG TAB PO SCH (12:19)
[2016-11-09] MEDS: ENOXAPARIN SODIUM 120 MG/0.8 ML SYRINGE SQ SCH (12:20)
[2016-11-09] MEDS: cefTRIAXone INJ 1,000 MG in SODIUM CHLORIDE 0.9% INJ 100 ML IV SCH (17:42)
[2016-11-09] MEDS: ALPRAZolam 0.25 MG TAB PO PRN (21:07)
[2016-11-09] MEDS: HYDROmorphone HCL PF 1 MG/ML VIAL IV PUSH PRN (21:07)
[2016-11-10] VITALS (9 sets, daily range): BP systolic 117–131; BP diastolic 62–79; PULSE 73–94; RESP 18–20; TEMP 96–98.2; O2SAT 93–98
[2016-11-10] MEDS: HYDROmorphone HCL PF 1 MG/ML VIAL IV PUSH PRN ×2 (03:57→20:47)
[2016-11-10] MEDS: LEVOTHYROXINE SODIUM 50 MCG TAB PO SCH (05:14)
[2016-11-10 06:36] LABS: INTERNATIONAL NORMALIZED RATIO 1.1 RATIO; POTASSIUM 4.8 MEQ/L (3.5-5.1)
[2016-11-10 06:42] LABS: BICARBONATE 32.4 MEQ/L (21.0-32.0)
[2016-11-10] MEDS: MUPIROCIN 2% OINT 22 GM TUBE TOPICAL SCH (09:00)
[2016-11-10] MEDS ORDERED: REMOVE OLD DURAGESIC (FENTANYL) PATCH T-DERMAL SCH (09:00)
[2016-11-10] MEDS: fentaNYL 50 MCG/HR PATCH T-DERMAL SCH (09:49)
[2016-11-10] MEDS: methylPREDNISolone 4 MG TAB PO SCH (09:50)
[2016-11-10] MEDS: DIGOXIN 0.125 MG TAB PO SCH (09:50)
[2016-11-10] MEDS: LOSARTAN 25 MG TAB PO SCH (09:50)
[2016-11-10] MEDS: DILTIAZEM HCL 30 MG TAB PO SCH ×2 (09:50→20:46)
[2016-11-10] MEDS: MUPIROCIN 2% OINT 1 APPLIC/GM SYR NASAL SCH ×2 (09:50→20:47)
[2016-11-10] MEDS: ASPIRIN EC 81 MG TABEC PO SCH (09:51)
[2016-11-10] MEDS: FUROSEMIDE 40 MG TAB PO SCH (09:51)
[2016-11-10] MEDS: PANTOPRAZOLE SOD 40 MG DELAYED RELEASE TAB PO SCH (09:51)
[2016-11-10] MEDS ORDERED: MAGNESIUM HYDROXIDE SUSP 30 ML CUP PO ONE (10:00)
[2016-11-10] MEDS ORDERED: BISACODYL 10 MG SUPP RECTAL ONE (10:00)
[2016-11-10] MEDS: ENOXAPARIN SODIUM 120 MG/0.8 ML SYRINGE SQ SCH (10:29)
[2016-11-10] MEDS ORDERED: MAGNESIUM HYDROXIDE SUSP 30 ML CUP PO PRN (17:15)
--- NOTE | 2016-11-10 17:21 | HHI.PR ---
Subjective Remarks Was OOB to [facility] today. +BM. Still CLARKE and genralized weakness. Denies chest pain. Still complains of bilateral lower extremity pain with weightbearing but less. Afebrile. Appetite good. Sleeping well with BiPAP. Current Medications Medications (Trade) Dose Ordered Sig/David Route Start Time Stop Time Status Last Admin (NS Flush) 2 ml UNSCH PRN IVF 11/06/16 13:45 (NS Flush) 2 ml UNSCH PRN IV FLUSH 11/06/16 15:15 Ceftriaxone Sodium 1000 mg/ Sodium Chloride 100 ml @ 200 mls/hr Q24H IV 11/06/16 18:00 11/09/16 17:42 (Xanax) 0.25 mg Q8H PRN PO 11/06/16 17:45 11/09/16 21:07 (Ecotrin Ec) 81 mg DAILY PO 11/07/16 09:00 11/10/16 09:51 (Synthroid) 50 mcg DAILY@0600 PO 11/07/16 06:00 11/10/16 05:14 (Medrol) 4 mg DAILY PO 11/07/16 09:00 11/10/16 09:50 (Cozaar) 25 mg DAILY PO 11/07/16 09:00 11/10/16 09:50 (Dilaudid Pf Inj) 0.5 mg Q4H PRN IV PUSH 11/06/16 18:00 11/10/16 03:57 (Bactroban 2% Oint) 1 applic DAILY TOPICAL 11/06/16 20:00 11/10/16 09:00 (Protonix) 40 mg DAILY PO 11/07/16 21:00 11/10/16 09:51 (Lanoxin) 0.125 mg DAILY PO 11/07/16 09:00 11/10/16 09:50 (Cardizem) 30 mg BID PO 11/07/16 09:00 11/10/16 09:50 (Duragesic 50 Mcg Patch.72 Hr) 1 patch Q3D T-DERMAL 11/07/16 09:00 11/10/16 09:49 Miscellaneous Information 1 Q3D T-DERMAL 11/10/16 09:00 11/10/16 09:00 (Tears Naturale Opth Soln) 2 drop Q4H PRN EACH EYE 11/07/16 17:45 (Bactroban Nasal 2% Oint) Apply to NASAL WOUND BID NASAL 11/07/16 21:00 11/10/16 09:50 (Lasix) 40 mg DAILY PO 11/09/16 10:00 11/10/16 09:51 (Lovenox Inj) 110 mg Q24H SQ 11/09/16 10:00 11/10/16 10:29 Objective Vital Signs Date Time Temp Pulse Resp B/P (MAP) Pulse Ox O2 Delivery O2 Flow Rate FiO2 11/10/16 12:00 98.1 89 18 122/76 (91) 98 11/10/16 10:49 17 11/10/16 08:00 98.0 90 18 125/79 (94) 96 11/10/16 07:58 87 11/10/16 07:54 96 Nasal Cannula 3.00 11/10/16 07:00 Nasal Cannula 2.00 11/10/16 04:00 97.0 88 20 130/62 (84) 94 11/10/16 00:00 96.0 82 20 117/70 (86) 96 11/09/16 23:54 101 11/09/16 21:15 96 CPAP 3.00 11/09/16 20:00 Nasal Cannula 2.00 11/09/16 20:00 97.8 96 20 114/77 (89) 95 I/O 11/09/16 11/09/16 11/09/16 11/10/16 11/10/16 11/10/16 07:00 15:00 23:00 07:00 15:00 23:00 Intake Total 240 ml 60 ml Output Total 225 ml 350 ml 300 ml Balance 15 ml -290 ml -300 ml Intake Oral 240 ml 60 ml Output Urine Total 225 ml 350 ml 300 ml # Voids 3 7 2 # Bowel Movements 0 0 CV: IRRR with high pitched systolic murmur Lungs: CTA Abd; Obese, soft, mild distention, +BS Ext: RLE: open wound lateral distal lower leg. No surrounding erythema or induration. No bleeding or discharge. Leteral midfoot reveals 1X1.5 cm open wound. Erythema extends to dorsum of foot with 1+ edema. Intact distal pulses LLE: minimal edema, no open areas or erythema. Intact distal pulses Result Diagram: 11/06/16 1357 11/10/16 0600 Assessment and Plan Problem List: (1) Cellulitis and abscess of foot ICD Codes: L03.119 - Cellulitis of unspecified part of limb; L02.619 - Cutaneous abscess of unspecified foot Status: Acute Plan: Erythema persists. Will change antibiotics. D/C Rocephin. Begin Doxycycline IV (2) Atrial fibrillation with RVR ICD Codes: I48.91 - Unspecified atrial fibrillation Status: Acute Plan: Ventricular rate controlled with digoxin and diltiazem. Cont Lovenox until INR therapeutic (3) Coumadin toxicity ICD Codes: T45.511A - Poisoning by anticoagulants, accidental (unintentional), initial encounter Status: Resolved Plan: INR WNL after Vit K. Will resume Coumadin and follow INR (4) Congestive heart failure (CHF) ICD Codes: I50.9 - Heart failure, unspecified Status: Chronic Plan: Cont Lasix 40 mg daily. Cont ARB. Patient has not been able to tolerate Beta Meena due to hypotension. Check Echo as last was done late 2015 (5) Obstructive sleep apnea ICD Codes: G47.33 - Obstructive sleep apnea (adult) (pediatric) Status: Chronic Plan: Cont Bipap with O2 at 3 l/min at bedtime (6) GERD (gastroesophageal reflux disease) ICD Codes: K21.9 - Gastro-esophageal reflux disease without esophagitis Status: Chronic Plan: Cont PPI (7) Hypothyroidism ICD Codes: E03.9 - Hypothyroidism, unspecified Status: Chronic Plan: TSH therapeutic. Cont Levothyroxine (8) Rheumatoid arthritis ICD Codes: M06.9 - Rheumatoid arthritis, unspecified Status: Chronic Plan: Cont Medrol (9) Lumbar disc disease with radiculopathy ICD Codes: M51.16 - Intervertebral disc disorders with radiculopathy, lumbar region Status: Chronic Plan: Cont Fentanyl patch to 50 mcg/hr. Dilaudid prn breakthrough pain (10) Constipation ICD Codes: K59.00 - Constipation, unspecified Status: Acute Plan: BM today. Will Rx daily Colace and MOM prn Problem Qualifiers (1) Coumadin toxicity: Qualified Codes: T45.511A - Poisoning by anticoagulants, accidental ( unintentional), initial encounter (2) Congestive heart failure (CHF): Qualified Codes: I50.22 - Chronic systolic (congestive) heart failure (3) GERD (gastroesophageal reflux disease): Qualified Codes: K21.9 - Gastro-esophageal reflux disease without esophagitis (4) Hypothyroidism: Qualified Codes: E03.9 - Hypothyroidism, unspecified (5) Rheumatoid arthritis: Qualified Codes: M05.9 - Rheumatoid arthritis with rheumatoid factor, unspecified (6) Constipation: Qualified Codes: K59.00 - Constipation, unspecified Garrett Shaw MD Nov 10, 2016 17:20
[2016-11-10] MEDS: DOXYCYCLINE INJ 100 MG in SODIUM CHLORIDE 0.9% INJ 100 ML IV SCH (18:12)
[2016-11-10] MEDS: ALPRAZolam 0.25 MG TAB PO PRN (20:46)
[2016-11-10] MEDS: DOCUSATE SODIUM 100 MG CAP PO SCH (20:46)
[2016-11-11] VITALS (8 sets, daily range): BP systolic 120–144; BP diastolic 74–94; PULSE 68–90; RESP 18–20; TEMP 95.4–98.3; O2SAT 92–98
[2016-11-11 05:19] LABS: HEMATOCRIT 46.3 % (39.0-51.0); MEAN CELL VOLUME 86.9 FL (80.0-100.0); MEAN CORPUSCULAR HEMOGLOBIN 27.4 PG (27.0-34.0); MEAN CORPUSCULAR HGB CONC 31.5 % (32.0-36.0); PLATELET COUNT 251 TH/MM3 (150-450); RED BLOOD COUNT 5.33 MIL/MM3 (4.50-5.90); RED CELL DISTRIBUTION WIDTH 20.5 % (11.6-17.2); WHITE BLOOD COUNT 14.6 TH/MM3 (4.0-11.0)
[2016-11-11 05:23] LABS: HEMO FLAGS AUTO DIFF
[2016-11-11 05:38] LABS: POTASSIUM 4.9 MEQ/L (3.5-5.1)
[2016-11-11 05:42] LABS: BANDS 1 % (0-6); BICARBONATE 32.4 MEQ/L (21.0-32.0); NEUTROPHIL # MANUAL DIFF 10.4 TH/MM3 (1.8-7.7); POLYS (SEG NEUTROPHILS) 70 % (16-70); WBC DIFF SAMPLE 100
[2016-11-11 05:43] LABS: OVALOCYTES 1+ (NORMAL); PLATELET ESTIMATE SMEAR NORMAL (NORMAL); PLATELET MORPHOLOGY CLUMPED (NORMAL); SCAN/DIFF FINAL DIFF MANUAL
[2016-11-11] MEDS: DOXYCYCLINE INJ 100 MG in SODIUM CHLORIDE 0.9% INJ 100 ML IV SCH ×2 (06:30→17:20)
[2016-11-11] MEDS: LEVOTHYROXINE SODIUM 50 MCG TAB PO SCH (06:30)
[2016-11-11] MEDS ORDERED: DO NOT ADM ANY ANTICOAGULANT DRUGS OTHER PRN (08:45)
[2016-11-11] MEDS: MUPIROCIN 2% OINT 1 APPLIC/GM SYR NASAL SCH ×2 (09:00→21:32)
--- NOTE | 2016-11-11 09:10 | HHI.PR ---
Subjective Remarks Slept well. PO intake good. UOP good. Pain in lower extremities better. Remains on O2 at 2 l/min NC. No chest pain, Nausea, palpitations. Ventricular rate remains under good control. Current Medications Medications (Trade) Dose Ordered Sig/David Route Start Time Stop Time Status Last Admin (NS Flush) 2 ml UNSCH PRN IVF 11/06/16 13:45 11/10/16 20:47 (NS Flush) 2 ml UNSCH PRN IV FLUSH 11/06/16 15:15 (Xanax) 0.25 mg Q8H PRN PO 11/06/16 17:45 11/10/16 20:46 (Ecotrin Ec) 81 mg DAILY PO 11/07/16 09:00 11/10/16 09:51 (Synthroid) 50 mcg DAILY@0600 PO 11/07/16 06:00 11/11/16 06:30 (Medrol) 4 mg DAILY PO 11/07/16 09:00 11/10/16 09:50 (Cozaar) 25 mg DAILY PO 11/07/16 09:00 11/10/16 09:50 (Dilaudid Pf Inj) 0.5 mg Q4H PRN IV PUSH 11/06/16 18:00 11/10/16 20:47 (Bactroban 2% Oint) 1 applic DAILY TOPICAL 11/06/16 20:00 11/10/16 09:00 (Protonix) 40 mg DAILY PO 11/07/16 21:00 11/10/16 09:51 (Lanoxin) 0.125 mg DAILY PO 11/07/16 09:00 11/10/16 09:50 (Cardizem) 30 mg BID PO 11/07/16 09:00 11/10/16 20:46 (Duragesic 50 Mcg Patch.72 Hr) 1 patch Q3D T-DERMAL 11/07/16 09:00 11/10/16 09:49 Miscellaneous Information 1 Q3D T-DERMAL 11/10/16 09:00 11/10/16 09:00 (Tears Naturale Opth Soln) 2 drop Q4H PRN EACH EYE 11/07/16 17:45 (Bactroban Nasal 2% Oint) Apply to NASAL WOUND BID NASAL 11/07/16 21:00 9/20/17 20:47 (Lasix) 40 mg DAILY PO 11/09/16 10:00 11/10/16 09:51 (Lovenox Inj) 110 mg Q24H SQ 11/09/16 10:00 11/10/16 10:29 Doxycycline Hyclate 100 mg/ Sodium Chloride 100 ml @ 100 mls/hr Q12H IV 11/10/16 18:00 11/11/16 06:30 (Colace) 100 mg BID PO 11/10/16 21:00 11/10/16 20:46 (Milk Of Magnesia Liq) 30 ml DAILY PRN PO 11/10/16 17:15 (Coumadin) 7.5 mg DAILY@16 PO 11/11/16 16:00 Miscellaneous Information ALL NURSING DEPARTME... UNSCH PRN OTHER 11/11/16 08:45 11/12/16 08:44 (Coumadin Booklet) 1 ONCE ONCE OTHER 11/11/16 16:00 11/11/16 16:01 Objective Vital Signs Date Time Temp Pulse Resp B/P (MAP) Pulse Ox O2 Delivery O2 Flow Rate FiO2 11/11/16 08:00 95.4 76 20 143/94 (110) 96 11/11/16 04:00 96.0 68 20 140/82 (101) 97 11/11/16 00:00 97.3 78 20 126/74 (91) 96 11/10/16 20:10 96 Nasal Cannula 3.00 11/10/16 20:00 73 11/10/16 20:00 98.2 94 20 131/76 (94) 93 11/10/16 20:00 Nasal Cannula 3.00 11/10/16 16:00 97.6 85 19 118/77 (91) 96 11/10/16 12:00 98.1 89 18 122/76 (91) 98 11/10/16 10:49 17 I/O 11/10/16 11/10/16 11/10/16 11/11/16 11/11/16 11/11/16 07:00 15:00 23:00 07:00 15:00 23:00 Intake Total 60 ml 240 ml 120 ml Output Total 350 ml 300 ml 375 ml 425 ml Balance -290 ml -300 ml -135 ml -305 ml Intake Oral 60 ml 240 ml 120 ml Output Urine Total 350 ml 300 ml 375 ml 425 ml # Voids 2 4 2 # Bowel Movements 0 1 0 CV: IRRR with systolic murmur Lungs: CTA Ext: RLE: decreasing erythema dorsal lateral foot. tr-1+ edema dorsal foot. 1X1.5 cm open wound lateral midfoot. Distal lateral lower leg wound without signs of infection. LLE: 1+ pedal edema Result Diagram: 11/11/1650911/11/16509 Assessment and Plan Problem List: (1) Cellulitis and abscess of foot ICD Codes: L03.119 - Cellulitis of unspecified part of limb; L02.619 - Cutaneous abscess of unspecified foot Status: Acute Plan: Day 2 Doxycycline IV. Clinically improving (2) Atrial fibrillation with RVR ICD Codes: I48.91 - Unspecified atrial fibrillation Status: Acute Plan: Ventricular rate controlled with digoxin and diltiazem. Have resumed Coumadin. Cont Lovenox until INR therapeutic (3) Congestive heart failure (CHF) ICD Codes: I50.9 - Heart failure, unspecified Status: Chronic Plan: Cont Lasix 40 mg daily. Cont ARB. Patient has not been able to tolerate Beta Meena due to hypotension. Check Echo as last was done late 2016 (4) Obstructive sleep apnea ICD Codes: G47.33 - Obstructive sleep apnea (adult) (pediatric) Status: Chronic Plan: Cont Bipap with O2 at 3 l/min at bedtime (5) GERD (gastroesophageal reflux disease) ICD Codes: K21.9 - Gastro-esophageal reflux disease without esophagitis Status: Chronic Plan: Cont PPI (6) Hypothyroidism ICD Codes: E03.9 - Hypothyroidism, unspecified Status: Chronic Plan: TSH therapeutic. Cont Levothyroxine (7) Rheumatoid arthritis ICD Codes: M06.9 - Rheumatoid arthritis, unspecified Status: Chronic Plan: Cont Medrol (8) Lumbar disc disease with radiculopathy ICD Codes: M51.16 - Intervertebral disc disorders with radiculopathy, lumbar region Status: Chronic Plan: Cont Fentanyl patch to 50 mcg/hr. Dilaudid prn breakthrough pain (9) Constipation ICD Codes: K59.00 - Constipation, unspecified Status: Acute Plan: Cont Colace and MOM prn (10) Coumadin toxicity ICD Codes: T45.511A - Poisoning by anticoagulants, accidental (unintentional), initial encounter Status: Resolved Plan: INR WNL after Vit K. Will resume Coumadin and follow INR Discharge Planning Discussed discharge plan with patient. His mobility is significantly impaired. He lives with his who is frail. He would benefit from SNF placement. Case management consult placed. Patient requests [facility] Problem Qualifiers (1) Congestive heart failure (CHF): Qualified Codes: I50.22 - Chronic systolic (congestive) heart failure (2) GERD (gastroesophageal reflux disease): Qualified Codes: K21.9 - Gastro-esophageal reflux disease without esophagitis (3) Hypothyroidism: Qualified Codes: E03.9 - Hypothyroidism, unspecified (4) Rheumatoid arthritis: Qualified Codes: M05.9 - Rheumatoid arthritis with rheumatoid factor, unspecified (5) Constipation: Qualified Codes: K59.00 - Constipation, unspecified (6) Coumadin toxicity: Qualified Codes: T45.511A - Poisoning by anticoagulants, accidental ( unintentional), initial encounter Garrett Shaw MD Nov 11, 2016 09:10
[2016-11-11] MEDS: ENOXAPARIN SODIUM 120 MG/0.8 ML SYRINGE SQ SCH (10:00)
[2016-11-11] MEDS: MUPIROCIN 2% OINT 22 GM TUBE TOPICAL SCH (10:11)
[2016-11-11] MEDS: DOCUSATE SODIUM 100 MG CAP PO SCH ×2 (10:12→21:32)
[2016-11-11] MEDS: methylPREDNISolone 4 MG TAB PO SCH (10:12)
[2016-11-11] MEDS: DIGOXIN 0.125 MG TAB PO SCH (10:12)
[2016-11-11] MEDS: LOSARTAN 25 MG TAB PO SCH (10:12)
[2016-11-11] MEDS: PANTOPRAZOLE SOD 40 MG DELAYED RELEASE TAB PO SCH (10:12)
[2016-11-11] MEDS: DILTIAZEM HCL 30 MG TAB PO SCH ×2 (10:13→21:32)
[2016-11-11] MEDS: FUROSEMIDE 40 MG TAB PO SCH (10:13)
[2016-11-11] MEDS: ASPIRIN EC 81 MG TABEC PO SCH (10:13)
[2016-11-11] MEDS: SPIRONOLACTONE 25 MG TAB PO SCH (10:20)
--- NOTE | 2016-11-11 12:07 | ECHRPT ---
Indication: CARDIOMYOPATHY CONCLUSIONS Normal left ventricular size. Mild concentric left ventricular hypertrophy. The left ventricular systolic function is severely reduced with an estimated ejection fraction in th e range of 30-35%. The right ventricle is mildly dilated. The right ventricular systoilc function is normal. The left atrial size is [id number] dilated. The interatrial septum not well visualized. The aortic root and proximal ascending aorta are not well visualized. Moderate mitral annular calcification. Mild thickening of the mitral valve leaflets. [id number]-qniz mitral valve regurgitation. Diffuse calcification of the aortic valve. Mild aortic valve regurgitation. Aortic valve area is 0.97 cm. Mild to moderate aortic valve stenosis. Aortic valve mean gradient is 12.5 mmHg. There is estimated mild pulmonary hypertension present (range 40-50 mmHg). The pulmonary valve is not well visualized. The inferior vena cava was not well visualized. BP: 140 / 82 HR: 68 Rhythm: Atrial fibrillation, Atrial flut ter MEASUREMENTS (Male / Female) Normal Values Technical Quality:Very technically difficult study 2D ECHO LV Diastolic Diameter PLAX 5.0 cm 4.2 - 5.9 / 3.9 - 5.3 cm LV Systolic Diameter PLAX 4.5 cm IVS Diastolic Thickness 1.0 cm 0.6 - 1.0 / 0.6 - 0.9 cm LVPW Diastolic Thickness 1.0 cm 0.6 - 1.0 / 0.6 - 0.9 cm LV Relative Wall Thickness 0.4 LVOT Diameter 2.0 cm Aortic Root Diameter 3.0 cm LA Systolic Diameter LX 3.5 cm 3.0 - 4.0 / 2.7 - 3.8 cm DOPPLER AV Peak Velocity 249.5 cm/s AV Peak Gradient 24.9 mmHg AV Mean Gradient 12.5 mmHg AV Velocity Time Integral 39.1 cm LVOT Peak Velocity 86.0 cm/s LVOT Peak Gradient 3.0 mmHg LVOT Velocity Time Integral 12.1 cm LVOT Cardiac Index 1043.3 cm/minm AV Area Cont Eq vti 1.0 cm AV Area Cont Eq pk 1.1 cm Mitral E Point Velocity 105.2 cm/s LV E' Lateral Velocity 13.4 cm/s Mitral E to LV E' Lateral Ratio 7.9 LV E' Septal Velocity 6.9 cm/s Mitral E to LV E' Septal Ratio 15.2 TR Peak Velocity 303.0 cm/s TR Peak Gradient 36.7 mmHg Right Atrial Pressure 10.0 mmHg Pulmonary Artery Systolic Pressu 46.7 mmHg Right Ventricular Systolic Press 46.7 mmHg PV Peak Velocity 105.3 cm/s PV Peak Gradient 4.4 mmHg FINDINGS LEFT VENTRICLE Normal left ventricular size. Mild concentric left ventricular hypertrophy. The left ventricular systolic function is severely reduced with an estimated ejection fraction in th e range of 30-35%. RIGHT VENTRICLE The right ventricle is mildly dilated. The right ventricular systoilc function is normal. LEFT ATRIUM The left atrial size is [id number] dilated. RIGHT ATRIUM The right atrial size is normal. ATRIAL SEPTUM The interatrial septum not well visualized. AORTA The aortic root and proximal ascending aorta are not well visualized. MITRAL VALVE Moderate mitral annular calcification. Mild thickening of the mitral valve leaflets. [id number] mitral valve regurgitation. AORTIC VALVE Diffuse calcification of the aortic valve. Mild aortic valve regurgitation. Aortic valve area is 0.97 cm. Aortic valve mean gradient is 12.5 mmHg. Mild to moderate aortic valve stenosis. TRICUSPID VALVE Structurally normal tricuspid valve. There is estimated mild pulmonary hypertension present (range 4 0-50 mmHg). PULMONARY VALVE The pulmonary valve is not well visualized. VESSELS The inferior vena cava was not well visualized. Beau Ott MD, FACC (Electronically Signed) Final Date:11 November 2016 12:06
[2016-11-11] MEDS ORDERED: WARFARIN SOD 7.5 MG TAB PO SCH (16:00)
[2016-11-11] MEDS: ALPRAZolam 0.25 MG TAB PO PRN (21:32)
[2016-11-11] MEDS: HYDROmorphone HCL 2 MG TAB PO PRN (21:33)
[2016-11-12] VITALS: BP 119/83; PULSE 80; RESP 20; TEMP 97; O2SAT 97
[2016-11-12 04:00] VITALS: BP 132/88; PULSE 83; RESP 20; TEMP 96; O2SAT 99
[2016-11-12] MEDS: LEVOTHYROXINE SODIUM 50 MCG TAB PO SCH (05:22)
[2016-11-12 05:41] LABS: AUTOMATED NEUTROPHIL # 6.6 TH/MM3 (1.8-7.7); BASOPHIL # 0.1 TH/MM3 (0-0.2); BASOPHIL % 1.1 % (0.0-2.0); EOSINOPHIL # 0.1 TH/MM3 (0-0.4); EOSINOPHIL % 0.7 % (0.0-4.0); HEMO FLAGS DIFF FINAL; LYMPH % 18.6 % (9.0-44.0); LYMPHOCYTE # 1.7 TH/MM3 (1.0-4.8); MEAN CELL VOLUME 86.7 FL (80.0-100.0); MEAN CORPUSCULAR HEMOGLOBIN 26.7 PG (27.0-34.0); MEAN CORPUSCULAR HGB CONC 30.8 % (32.0-36.0); MONO % 8.3 % (0.0-8.0); NEUT % 71.3 % (16.0-70.0); PLATELET COUNT 313 TH/MM3 (150-450); RED BLOOD COUNT 5.76 MIL/MM3 (4.50-5.90); RED CELL DISTRIBUTION WIDTH 20.6 % (11.6-17.2); WHITE BLOOD COUNT 9.3 TH/MM3 (4.0-11.0)
[2016-11-12 05:51] LABS: INTERNATIONAL NORMALIZED RATIO 1.1 RATIO
[2016-11-12 06:01] LABS: POTASSIUM 4.5 MEQ/L (3.5-5.1)
[2016-11-12 06:05] LABS: BICARBONATE 35.1 MEQ/L (21.0-32.0)
[2016-11-12 08:00] VITALS: BP 145/88; PULSE 78; RESP 21; TEMP 97; O2SAT 98
[2016-11-12] MEDS ORDERED: COUM7.5T PO (09:31)
[2016-11-12] MEDS ORDERED: ALPR.25 PO (09:31)
[2016-11-12] MEDS ORDERED: ENOX120P SQ (09:31)
[2016-11-12] MEDS ORDERED: METO25TA3 PO (09:31)
[2016-11-12] MEDS ORDERED: MAGN400S PO (09:31)
[2016-11-12] MEDS ORDERED: POLY99.0 EACH EYE (09:31)
[2016-11-12] MEDS ORDERED: DILA2TAB2 PO (09:31)
[2016-11-12] MEDS ORDERED: DOXY100T PO (09:31)
[2016-11-12] MEDS ORDERED: MUPI2OIN TOPICAL (09:31)
[2016-11-12] MEDS ORDERED: DILT31TA PO (09:31)
[2016-11-12] MEDS ORDERED: FENT50T T-DERMAL (09:31)
[2016-11-12] MEDS ORDERED: FURO40TA PO (09:31)
[2016-11-12] MEDS ORDERED: SPIR25 PO (09:31)
[2016-11-12] MEDS ORDERED: DOCU1CAP39 PO (09:31)
[2016-11-12] MEDS ORDERED: DIGO0.12 PO (09:31)
--- NOTE | 2016-11-12 09:32 | HHI.PR ---
Subjective Remarks +BM. Denies SOB or chest pain. Remains on O2 at 3 l/min NC with O2 sats 98%. OOB to bedside comode. Reports less pain in feet. PO intake good. Current Medications Medications (Trade) Dose Ordered Sig/David Route Start Time Stop Time Status Last Admin (NS Flush) 2 ml UNSCH PRN IVF 11/06/16 13:45 11/10/16 20:47 (NS Flush) 2 ml UNSCH PRN IV FLUSH 11/06/16 15:15 (Xanax) 0.25 mg Q8H PRN PO 11/06/16 17:45 11/11/16 21:32 (Ecotrin Ec) 81 mg DAILY PO 11/07/16 09:00 11/11/16 10:13 (Synthroid) 50 mcg DAILY@0600 PO 11/07/16 06:00 11/12/16 05:22 (Medrol) 4 mg DAILY PO 11/07/16 09:00 11/11/16 10:12 (Cozaar) 25 mg DAILY PO 11/07/16 09:00 11/11/16 10:12 (Bactroban 2% Oint) 1 applic DAILY TOPICAL 11/06/16 20:00 11/11/16 10:11 (Protonix) 40 mg DAILY PO 11/07/16 21:00 11/11/16 10:12 (Lanoxin) 0.125 mg DAILY PO 11/07/16 09:00 11/11/16 10:12 (Cardizem) 30 mg BID PO 11/07/16 09:00 11/11/16 21:32 (Duragesic 50 Mcg Patch.72 Hr) 1 patch Q3D T-DERMAL 11/07/16 09:00 11/10/16 09:49 Miscellaneous Information 1 Q3D T-DERMAL 11/10/16 09:00 11/10/16 09:00 (Tears Naturale Opth Soln) 2 drop Q4H PRN EACH EYE 11/07/16 17:45 (Bactroban Nasal 2% Oint) Apply to NASAL WOUND BID NASAL 11/07/16 21:00 11/11/16 21:32 (Lasix) 40 mg DAILY PO 11/09/16 10:00 11/11/16 10:13 (Lovenox Inj) 110 mg Q24H SQ 11/09/16 10:00 11/10/16 10:29 Doxycycline Hyclate 100 mg/ Sodium Chloride 100 ml @ 100 mls/hr Q12H IV 11/10/16 18:00 11/11/16 17:20 (Colace) 100 mg BID PO 11/10/16 21:00 11/11/16 21:32 (Milk Of Magnesia Liq) 30 ml DAILY PRN PO 11/10/16 17:15 (Coumadin) 7.5 mg DAILY@16 PO 11/11/16 16:00 11/11/16 17:20 (Aldactone) 25 mg DAILY PO 11/11/16 09:00 11/11/16 10:20 (Dilaudid) 1 mg Q6H PRN PO 11/11/16 09:15 11/11/16 21:33 Objective Vital Signs Date Time Temp Pulse Resp B/P (MAP) Pulse Ox O2 Delivery O2 Flow Rate FiO2 11/12/16 08:00 97.0 78 21 145/88 (107) 98 11/12/16 04:00 96.0 83 20 132/88 (103) 99 11/12/16 00:00 97.0 80 20 119/83 (95) 97 11/11/16 20:12 97 Nasal Cannula 3.00 11/11/16 20:00 96.4 83 20 144/74 (97) 97 11/11/16 16:07 84 11/11/16 16:00 98.0 90 18 121/83 (96) 92 11/11/16 15:19 96 Nasal Cannula 3.00 11/11/16 11:47 98.3 82 20 120/82 (95) 96 I/O 11/11/16 11/11/16 11/11/16 11/12/16 11/12/16 11/12/16 07:00 15:00 23:00 07:00 15:00 23:00 Intake Total 120 ml 480 ml 540 ml 120 ml Output Total 425 ml 550 ml 450 ml 575 ml Balance -305 ml -70 ml 90 ml -455 ml Intake Oral 120 ml 480 ml 240 ml 120 ml IV Total 300 ml Output Urine Total 425 ml 550 ml 450 ml 575 ml # Voids 2 2 2 # Bowel Movements 0 0 0 CV: IRRR with systolic murmur Lungs: CTA Abd: obese, soft, NT, mild distnetion, +BS Ext: RLE: tr-1+ edema lower leg and 1+ edema dorsal foot. Minimal erythema, Lateral midfoot wound healing well LLE: tr-1+ edema Result Diagram: 11/12/16 0500 11/12/16 0500 Other Results Echo: LVEF 30-35%, LAE, LVH, LANA, mild to moderate Aortic stenosis Assessment and Plan Problem List: (1) Cellulitis and abscess of foot ICD Codes: L03.119 - Cellulitis of unspecified part of limb; L02.619 - Cutaneous abscess of unspecified foot Status: Acute Plan: Day 3 Doxycycline. Clinically improving. Change to PO antibiotics. Cont wound care (2) Atrial fibrillation with RVR ICD Codes: I48.91 - Unspecified atrial fibrillation Status: Acute Plan: Ventricular rate controlled with digoxin and diltiazem. Have resumed Coumadin. Cont Lovenox until INR therapeutic (3) Congestive heart failure (CHF) ICD Codes: I50.9 - Heart failure, unspecified Status: Chronic Plan: Cont Lasix, ARB and Spironolactone. BP and HR adequate to add Beta- edvin. Will begin metoprolol. Titrate dose as BP and HR will allow (4) Obstructive sleep apnea ICD Codes: G47.33 - Obstructive sleep apnea (adult) (pediatric) Status: Chronic Plan: Cont Bipap with O2 at 3 l/min at bedtime (5) GERD (gastroesophageal reflux disease) ICD Codes: K21.9 - Gastro-esophageal reflux disease without esophagitis Status: Chronic Plan: Cont PPI (6) Hypothyroidism ICD Codes: E03.9 - Hypothyroidism, unspecified Status: Chronic Plan: TSH therapeutic. Cont Levothyroxine (7) Rheumatoid arthritis ICD Codes: M06.9 - Rheumatoid arthritis, unspecified Status: Chronic Plan: Cont Medrol (8) Lumbar disc disease with radiculopathy ICD Codes: M51.16 - Intervertebral disc disorders with radiculopathy, lumbar region Status: Chronic Plan: Cont Fentanyl patch 50 mcg/hr. Dilaudid prn breakthrough pain (9) Constipation ICD Codes: K59.00 - Constipation, unspecified Status: Acute Plan: Bowels moving. Cont Colace and MOM prn (10) Coumadin toxicity ICD Codes: T45.511A - Poisoning by anticoagulants, accidental (unintentional), initial encounter Status: Resolved Plan: INR WNL after Vit K. Cont Lovenox and Coumadin and follow INR. Discontinue Lovenox when INR > 1.9 Discharge Planning To SNF when arrangements finalized Problem Qualifiers (1) Congestive heart failure (CHF): Qualified Codes: I50.22 - Chronic systolic (congestive) heart failure (2) GERD (gastroesophageal reflux disease): Qualified Codes: K21.9 - Gastro-esophageal reflux disease without esophagitis (3) Hypothyroidism: Qualified Codes: E03.9 - Hypothyroidism, unspecified (4) Rheumatoid arthritis: Qualified Codes: M05.9 - Rheumatoid arthritis with rheumatoid factor, unspecified (5) Constipation: Qualified Codes: K59.00 - Constipation, unspecified (6) Coumadin toxicity: Qualified Codes: T45.511A - Poisoning by anticoagulants, accidental ( unintentional), initial encounter Garrett Shaw MD Nov 12, 2016 09:32
[2016-11-12] MEDS: LOSARTAN 25 MG TAB PO SCH (09:42)
[2016-11-12] MEDS: DOCUSATE SODIUM 100 MG CAP PO SCH (09:42)
[2016-11-12] MEDS: FUROSEMIDE 40 MG TAB PO SCH (09:42)
[2016-11-12] MEDS: methylPREDNISolone 4 MG TAB PO SCH (09:42)
[2016-11-12] MEDS: HYDROmorphone HCL 2 MG TAB PO PRN (09:43)
[2016-11-12] MEDS: DIGOXIN 0.125 MG TAB PO SCH (09:44)
[2016-11-12] MEDS: DILTIAZEM HCL 30 MG TAB PO SCH (09:44)
[2016-11-12] MEDS: PANTOPRAZOLE SOD 40 MG DELAYED RELEASE TAB PO SCH (09:44)
[2016-11-12] MEDS: ASPIRIN EC 81 MG TABEC PO SCH (09:44)
[2016-11-12] MEDS: SPIRONOLACTONE 25 MG TAB PO SCH (09:44)
[2016-11-12] MEDS: MUPIROCIN 2% OINT 1 APPLIC/GM SYR NASAL SCH (09:44)
[2016-11-12] MEDS: MUPIROCIN 2% OINT 22 GM TUBE TOPICAL SCH (09:44)
[2016-11-12] MEDS: ENOXAPARIN SODIUM 120 MG/0.8 ML SYRINGE SQ SCH (09:45)
[2016-11-12] MEDS ORDERED: METOPROLOL TARTRATE 25 MG TAB PO SCH (10:00)
[2016-11-12] MEDS ORDERED: DOXYCYCLINE HYCLATE 100 MG TAB PO SCH (10:00)
[2016-11-12 12:00] VITALS: BP 124/87; PULSE 80; RESP 21; TEMP 95.6; O2SAT 90
--- NOTE | 2016-12-02 09:25 | HHI.DS ---
Discharge Summary Admission Date Nov 06, 2016 at 15:22 Discharge Date: Dec 12, 2016 Admitting Diagnosis A. fib with RVR, dehydration, chronic venous stasis (1) Cellulitis and abscess of foot Diagnosis: Principal ICD Codes: L03.119 - Cellulitis of unspecified part of limb; L02.619 - Cutaneous abscess of unspecified foot Status: Acute (2) Chronic atrial fibrillation Diagnosis: Secondary ICD Codes: I48.2 - Chronic atrial fibrillation Status: Chronic (3) Congestive heart failure (CHF) Diagnosis: Secondary ICD Codes: I50.9 - Heart failure, unspecified Status: Chronic (4) Lumbar disc disease with radiculopathy Diagnosis: Secondary ICD Codes: M51.16 - Intervertebral disc disorders with radiculopathy, lumbar region Status: Chronic (5) Hypertension Diagnosis: Secondary ICD Codes: I10 - Essential (primary) hypertension Status: Chronic (6) Rheumatoid arthritis Diagnosis: Secondary ICD Codes: M06.9 - Rheumatoid arthritis, unspecified Status: Chronic (7) Hypothyroidism Diagnosis: Secondary ICD Codes: E03.9 - Hypothyroidism, unspecified Status: Chronic (8) GERD (gastroesophageal reflux disease) Diagnosis: Secondary ICD Codes: K21.9 - Gastro-esophageal reflux disease without esophagitis Status: Chronic (9) Obstructive sleep apnea Diagnosis: Secondary ICD Codes: G47.33 - Obstructive sleep apnea (adult) (pediatric) Status: Chronic (10) Constipation Diagnosis: Secondary ICD Codes: K59.00 - Constipation, unspecified Status: Acute (11) Coumadin toxicity Diagnosis: Secondary ICD Codes: T45.511A - Poisoning by anticoagulants, accidental (unintentional), initial encounter Status: Resolved Brief History This 86-year-old white male with a complex medical history including chronic atrial fibrillation, chronic systolic heart failure, chronic venous insufficiency, hypothyroidism and hypertension complained of increasing pain in the lower extremities worse on the right than the left. He has had an open area on the right lower leg as well as on the right lateral foot which had been treated with local wound care. The patient had recently been explained increasing lower extremity edema and his diuretics which consisted of furosemide and spironolactone were increased. His edema had improved but he had become progressively weaker and on the day of admission was unable to arise from bed due to generalized weakness. He had no chest pain, shortness of breath , nausea or vomiting. There were no fever or chills. The patient's contacted the undersigned physician and she was instructed to contact EMS and have the patient transferred to the emergency department for further evaluation. In the emergency department the patient was found to have clinical symptoms of intravascular volume depletion. His H&H as well as BUN and creatinine were higher than baseline. This is consistent with intravascular volume depletion. He had Coumadin toxicity with an INR 5.2. His white blood cell count was elevated at 11.6. Clinical evaluation revealed erythema of the foot and lower leg associated with the open wounds consistent with cellulitis. The patient also was found to have atrial fibrillation with a rapid ventricular response. The patient was placed on Cardizem drip in the emergency department. His heart rate came under better control. He was initiated on diltiazem and continued with metoprolol. He was weaned off the Cardizem drip. His heart rate continued to increase intermittently and his blood pressure would not tolerate any higher doses of the diltiazem or metoprolol, therefore, he was placed on a low dose of digoxin. His ventricular rate came under control remained under good control throughout the remainder of the hospitalization. The patient's Coumadin was held. The following day his INR is 5.9. He received a dose of vitamin K. His INR decreased rapidly to within normal limits. The patient was placed back on Coumadin but also was placed on Lovenox subcutaneously until his INR would be >2.0. The patient had a cellulitis of the right lower extremity. He was placed on IV antibiotics. The wounds were dressed with Bactroban and a sterile dressing. Over the remainder of the hospital course, the patient's cellulitis improved significantly. He was transitioned from IV antibiotics to oral antibiotics. The pain in his lower extremities improved. On the day of discharge the patient was eating well. He remained very weak and required assistance with transfers to the bedside commode and chair. It was felt he would benefit from placement in a care home facility for progressive rehabilitation. He would also require daily wound care to the right lower extremity wounds. The patient agreed to placement in a care home facility. The patient was discharged to the care home facility in good condition. His medications are listed on the medication reconciliation sheet. Orders were listed on the form 3008. The patient would continue with Lovenox until his INR today was >2.0. He understands that she will follow up with patient at the care home facility. Hospital Course The patient was initially admitted to the intensive unit for his atrial fibrillation with rapid ventricular response. The patient Pt Condition on Discharge: Good Discharge Disposition: Discharge to SNF Discharge Instructions DIET: Follow Instructions for: Heart Healthy Diet Additional Diet Instructions: No added salt diet Activities you can perform: Regular-No Restrictions Garrett Shaw MD Dec 02, 2016 09:25
== END 2016-11-12 14:58 | DRG 603 ==
LOC: PHED 13:20 → PHEDA 15:22 → PHICU 20:50 → PH3B 11-08 09:18
PROVIDERS: ADMIT Family Medicine; ATTEND Family Medicine
DX: L03.115 Cellulitis of right lower limb (principal); I11.0 Hypertensive heart disease with heart failure; I95.9 Hypotension, unspecified; I48.2 Chronic atrial fibrillation; I50.22 Chronic systolic (congestive) heart failure; L02.612 Cutaneous abscess of left foot; E86.0 Dehydration; E78.5 Hyperlipidemia, unspecified; F32.9 Major depressive disorder, single episode, unspecified; E03.9 Hypothyroidism, unspecified; F41.9 Anxiety disorder, unspecified; I87.2 Venous insufficiency (chronic) (peripheral); Z96.651 Presence of right artificial knee joint; Z96.641 Presence of right artificial hip joint; I25.10 Atherosclerotic heart disease of native coronary artery without angina pectoris; M06.9 Rheumatoid arthritis, unspecified; K57.90 Diverticulosis of intestine, part unspecified, without perforation or abscess without bleeding; K21.9 Gastro-esophageal reflux disease without esophagitis; M79.1 Myalgia; T45.511A Poisoning by anticoagulants, accidental (unintentional), initial encounter; G47.33 Obstructive sleep apnea (adult) (pediatric); M51.16 Intervertebral disc disorders with radiculopathy, lumbar region; K59.00 Constipation, unspecified; M19.011 Primary osteoarthritis, right shoulder; M19.012 Primary osteoarthritis, left shoulder; R26.2 Difficulty in walking, not elsewhere classified; Z79.01 Long term (current) use of anticoagulants; Z86.718 Personal history of other venous thrombosis and embolism; Z86.711 Personal history of pulmonary embolism; Z85.828 Personal history of other malignant neoplasm of skin; Z95.5 Presence of coronary angioplasty implant and graft
CPT/HCPCS: 71010; 80048; 80053; 80162; 82550; 83605; 83735; 83880; 84443; 85007; 85025; 85027; 85610; 85730; 87040; 93005; 93306; 94150; 96361; 96374; 96375; J0696; J1160; J1170; J1650; J2405; J3430; J7030; J7040; J7509